=== PATIENT | male | born 1965 | race Caucasian/White ===

== ENCOUNTER 2017-10-31 19:20 | Emergency (ER) | payer OTHER ==
[~2017-10-31] VITALS: Ht 175.3 cm; Wt 84.1 kg
[2017-10-31 19:24] VITALS: TEMP 97.4
[2017-10-31 20:40] LABS: COLLECTION METHOD CLEAN CATCH
[2017-10-31 20:46] LABS: PH 8 (5-8); SQUAMOUS EPITHELIAL 0-2 /hpf; URINE APPEARANCE Clear; URINE BACTERIA None Seen /hpf; URINE BILIRUBIN Negative (NEGATIVE); URINE BLOOD Negative (NEGATIVE); URINE COLOR Straw; URINE GLUCOSE Negative (NEGATIVE); URINE KETONE Negative (NEGATIVE); URINE LEUKOCYTE ESTERASE Negative (NEGATIVE); URINE PROTEIN(semi-quant) Negative (NEGATIVE); URINE UROBILINOGEN Negative (NEGATIVE); URINE WBC 0-2 /hpf
[2017-10-31] MEDS ORDERED: NAPROXEN 3375 MG/TAB PO (21:18)
[2017-10-31] MEDS ORDERED: NORCO 325 MG-51 TAB PO (21:55)
[2017-10-31 22:11] VITALS: BP 156/64; PULSE 60
[2017-11-01] MEDS ORDERED: PHENERGAN25 MG RC (23:51)
[2017-11-01] MEDS ORDERED: FLEXERIL 1010 MG/TAB PO (23:51)
== END 2017-10-31 22:12 | disposition home or self-care (01) ==
LOC: COL.ER 19:20
PROVIDERS: Emergency Medicine
DX: S30.0XXA Contusion of lower back and pelvis, initial encounter (principal); W10.9XXA Fall (on) (from) unspecified stairs and steps, initial encounter; Y92.009 Unspecified place in unspecified non-institutional (private) residence as the place of occurrence of the external cause
CPT/HCPCS: J1170; J1885; J2405

== ENCOUNTER 2017-11-01 21:45 | Emergency (ER) | payer OTHER ==
[~2017-11-01] VITALS: Ht 175.3 cm; Wt 84.1 kg
[~2017-11-01 21:45] MED LIST: NAPROXEN 3375 MG/TAB PO; NORCO 325 MG-51 TAB PO
[2017-11-01 21:51] VITALS: BP 131/74; TEMP 98.1
[2017-11-01] MEDS ORDERED: FLEXERIL 1010 MG/TAB PO (23:51)
[2017-11-01] MEDS ORDERED: PHENERGAN25 MG RC (23:51)
[2017-11-01 23:59] VITALS: PULSE 75
== END 2017-11-02 00:01 | disposition home or self-care (01) ==
LOC: COL.ER 21:45
DX: R11.2 Nausea with vomiting, unspecified (principal); M62.838 Other muscle spasm

== ENCOUNTER 2018-07-20 20:43 | Emergency (ER) | payer OTHER ==
[~2018-07-20] VITALS: Ht 175.3 cm; Wt 90.9 kg
[~2018-07-20 20:43] MED LIST changes: +FLEXERIL 1010 MG/TAB PO; +PHENERGAN25 MG RC
[2018-07-20 20:48] VITALS: TEMP 98.6
[2018-07-20] MEDS ORDERED: ZENZEDI2.5 MG PO (21:41)
[2018-07-20] MEDS ORDERED: ZOCOR5 MG PO (21:42)
[2018-07-20] MEDS ORDERED: EFFE25TA PO (21:42)
[2018-07-20] MEDS ORDERED: LOPRESSOR 225 MG/TAB PO (21:42)
[2018-07-20] MEDS ORDERED: LITHIUM CA150 MG/CAP (21:43)
[2018-07-20 21:46] LABS: COLLECTION METHOD CLEAN CATCH
[2018-07-20 21:58] LABS: MUCOUS Present /lpf; PH 7 (5-8); SQUAMOUS EPITHELIAL 0-2 /hpf; URINE APPEARANCE Clear; URINE BACTERIA None Seen /hpf; URINE BILIRUBIN Negative (NEGATIVE); URINE BLOOD Negative (NEGATIVE); URINE COLOR Yellow; URINE GLUCOSE Negative (NEGATIVE); URINE KETONE Negative (NEGATIVE); URINE LEUKOCYTE ESTERASE Negative (NEGATIVE); URINE NITRATE Negative (NEGATIVE); URINE PROTEIN(semi-quant) Negative (NEGATIVE); URINE RBC 0-2 /hpf; URINE UROBILINOGEN Negative (NEGATIVE)
[2018-07-20] MEDS ORDERED: MOBIC15 MG PO (22:41)
[2018-07-20] MEDS ORDERED: FLEXERIL 1010 MG/TAB PO (22:41)
[2018-07-20 23:06] VITALS: BP 145/80; PULSE 64
== END 2018-07-20 23:08 | disposition home or self-care (01) ==
LOC: COL.ER 20:43
PROVIDERS: Emergency Medicine
DX: M54.5 Low back pain (principal); I10 Essential (primary) hypertension; E78.5 Hyperlipidemia, unspecified; Z98.890 Other specified postprocedural states; Z87.891 Personal history of nicotine dependence
CPT/HCPCS: J1885; J2360

== ENCOUNTER → 2018-10-05 | Outpatient (CLI) | payer OTHER ==
[~2018-10-05] MED LIST changes: +EFFE25TA PO; +LITHIUM CA150 MG/CAP; +LOPRESSOR 225 MG/TAB PO; +MOBIC15 MG PO; +ZENZEDI2.5 MG PO; +ZOCOR5 MG PO
== END ==
LOC: COL.RAD 13:00
DX: M47.812 Spondylosis without myelopathy or radiculopathy, cervical region (principal); M99.71 Connective tissue and disc stenosis of intervertebral foramina of cervical region

== ENCOUNTER 2018-10-21 20:21 | Emergency (ER) | payer OTHER ==
[~2018-10-21] VITALS: Ht 175.3 cm; Wt 90.9 kg
[2018-10-21 20:28] VITALS: BP 147/72; TEMP 98.7
[2018-10-21] MEDS ORDERED: BACTRIM DS 8001 TAB PO (21:09)
[2018-10-21] MEDS ORDERED: CEPHALEXIN500 M1 PO (21:09)
[2018-10-21 21:36] VITALS: PULSE 78
== END 2018-10-21 21:36 | disposition home or self-care (01) ==
LOC: COL.ER 20:21
DX: L02.212 Cutaneous abscess of back [any part, except buttock and flank] (principal); F31.9 Bipolar disorder, unspecified; F98.8 Other specified behavioral and emotional disorders with onset usually occurring in childhood and adolescence

== ENCOUNTER 2019-01-16 21:56 | Emergency (ER) | payer OTHER ==
[~2019-01-16] VITALS: Ht 175.3 cm; Wt 95.5 kg
[~2019-01-16 21:56] MED LIST changes: +BACTRIM DS 8001 TAB PO; +CEPHALEXIN500 M1 PO
[2019-01-16 22:02] VITALS: TEMP 97.4
[2019-01-16] MEDS ORDERED: FLOMAX 0.40.4 MG/CAP PO (22:38)
[2019-01-16] MEDS ORDERED: FLEXERIL 1010 MG/TAB PO (23:22)
[2019-01-16] MEDS ORDERED: NORCO 325 MG-51 TAB PO (23:22)
[2019-01-17] MEDS ORDERED: FLEXERIL 1010 MG/TAB PO (00:09)
[2019-01-17 00:15] VITALS: BP 123/61; PULSE 73
== END 2019-01-17 00:26 | disposition home or self-care (01) ==
LOC: COL.ER 21:56
DX: M25.512 Pain in left shoulder (principal); E78.5 Hyperlipidemia, unspecified; N40.0 Benign prostatic hyperplasia without lower urinary tract symptoms; F31.9 Bipolar disorder, unspecified; F98.8 Other specified behavioral and emotional disorders with onset usually occurring in childhood and adolescence
CPT/HCPCS: J1885

== ENCOUNTER 2019-05-27 18:16 | Emergency (ER) | payer OTHER ==
[~2019-05-27] VITALS: Ht 175.3 cm; Wt 98.2 kg
[~2019-05-27 18:16] MED LIST changes: +FLOMAX 0.40.4 MG/CAP PO
[2019-05-27 18:20] VITALS: BP 145/65; PULSE 77; TEMP 98
== END 2019-05-27 18:45 | disposition home or self-care (01) ==
LOC: COL.ER 18:16
DX: M79.89 Other specified soft tissue disorders (principal)

== ENCOUNTER 2019-08-02 15:28 | Emergency (ER) | payer OTHER ==
[~2019-08-02] VITALS: Ht 175.3 cm; Wt 100.0 kg
[2019-08-02 15:58] VITALS: BP 136/85; TEMP 98.7
[2019-08-02 17:30] VITALS: PULSE 75
== END 2019-08-02 17:30 | disposition home or self-care (01) ==
LOC: COL.ER 15:28
DX: S86.911A Strain of unspecified muscle(s) and tendon(s) at lower leg level, right leg, initial encounter (principal); I10 Essential (primary) hypertension; X50.1XXA Overexertion from prolonged static or awkward postures, initial encounter

== ENCOUNTER 2019-10-25 08:29 | Observation (INO) | payer OTHER ==
[~2019-10-25] VITALS: Ht 175.3 cm; Wt 92.7 kg
[~2019-10-25 08:29] MED LIST changes: +ASPIRIN E.C. 8181 MG PO; -LITHIUM CA150 MG/CAP; +LITHIUM CA150 MG/CAP PO; +SEROQUEL 2525 MG/TAB PO; +ZOCOR 20MG20 MG PO
[2019-10-25 09:00] LABS: BASO % 0.2 % (0.0-2.0); EOS # 0.2 (0.0-0.7); EOS % 4.3 % (0-4.0); GRAN # 2.7 (1.4-6.5); GRAN % 54.2 % (42.2-75.2); HEMATOCRIT 46.3 % (42.0-52.0); LYMPH # 1.6 (1.2-3.4); LYMPH % 31.4 % (20.0-51.0); MEAN CELL VOLUME 92 fl (80.0-100.0); MEAN CORPUSCULAR HEMOGLOBIN 30 pg (27.0-31.0); MEAN CORPUSCULAR HGB CONC 32 g/dl (33.0-37.0); MEAN PLATELET VOLUME 11.2 fl (7.4-10.4); MONO # 0.5 (0.1-0.6); MONO % 9.7 % (1.7-9.3); PLATELET COUNT 178 K/mm3 (130-400); RED BLOOD COUNT 5.05 M/mm3 (4.20-5.60); REDCELL DISTRIBUTION WIDTH-CV 12.7 % (11.5-14.5)
[2019-10-25 09:11] LABS: PROTHROMBIN TIME 11.8 SECONDS (9.7-12.8)
[2019-10-25 09:14] LABS: PARTIAL THROMBOPLASTIN TIME 36.5 SECONDS (26.0-37.0)
[2019-10-25 09:17] LABS: ALANINE AMINOTRANSFERASE 30 U/L (21-72); ALBUMIN 4.1 gm/dL (3.5-5.0); ALKALINE PHOSPHATASE 51 U/L (50-136); ANION GAP 5 mmol/L (7-16); AST,SGOT 18 U/L (15-37); BILIRUBIN,TOTAL 0.4 mg/dL (0.0-1.0); BLOOD UREA NITROGEN 13 mg/dL (9-20); CALCIUM 8.7 mg/dL (8.4-10.2); CARBON DIOXIDE 31 mmol/L (22-30); CHLORIDE 105 mmol/L (98-107); CREATININE, serum 0.91 (0.66-1.25); GLUCOSE 85 mg/dL (74-106); MAGNESIUM 2.1 mg/dL (1.6-2.3); PHOSPHOROUS 2.1 mg/dL (2.5-4.5); POTASSIUM 4.2 mmol/L (3.4-5.0); SODIUM 140 mmol/L (137-145); TOTAL PROTEIN 6.6 gm/dL (6.4-8.2)
[2019-10-25 09:32] LABS: ALCOHOL(ethanol),MEDICAL < 10 mg/dL; TROPONIN-I < 0.012 ng/mL (0.000-0.035)
[2019-10-25 11:53] VITALS: BP 130/56; PULSE 96; TEMP 98.6
--- NOTE | 2019-10-25 13:24 | NUR ---
Pt 5 page, allergies and pharmacy completed. Pt laying in bed, A&O. RAC IV flushes w/o complication. Pt on room air, denies SOB. Pt on tele. Pt denies heart palpitations. States he has some "lightheadedness" if he gets up too fast. Pt denies pain, N/V/D. Pt independent in room. LS cta, heart RRR, pulses strong bilaterally. Pt states his "slurred speech is getting better". Pt isn't wearing dentures at this time, difficult to tell what baseline is, speech doesn't sound slurred. Hospitalist aware of pt arrival to floor. Pt down for MRI at this time. No other concerns expressed at this time.
[2019-10-25 16:22] VITALS: BP 136/52; PULSE 68; TEMP 98.2
[2019-10-25 19:56] LABS: COLLECTION METHOD CLEAN CATCH
[2019-10-25 20:00] LABS: MUCOUS Present /lpf; PH 6 (5-8); SQUAMOUS EPITHELIAL 0-2 /hpf; URINE APPEARANCE Clear; URINE BACTERIA Rare /hpf; URINE BILIRUBIN Negative (NEGATIVE); URINE BLOOD Negative (NEGATIVE); URINE COLOR Yellow; URINE GLUCOSE Negative (NEGATIVE); URINE KETONE Negative (NEGATIVE); URINE LEUKOCYTE ESTERASE Negative (NEGATIVE); URINE NITRATE Negative (NEGATIVE); URINE PROTEIN(semi-quant) Negative (NEGATIVE); URINE RBC 0-2 /hpf; URINE UROBILINOGEN Negative (NEGATIVE)
--- NOTE | 2019-10-25 20:15 | NUR ---
Resting in bed. Assessment complete. Lungs clear. Heart sounds normal. Bowels active x4. Pulses strong throughout. No edema noted. INT right AC flushed without complications. Denies pain. Denies needs. Hand trouble locater strong and equal No extremity drift. Steady gait. Smile and facial movement symmetrical. Will continue to monitor.
[2019-10-25 20:28] VITALS: BP 137/60; PULSE 71; TEMP 98.5
--- NOTE | 2019-10-25 23:06 | NUR ---
Patient ambulated to vending machines and back with staff. Gait belt. Steady gait at this time.
--- NOTE | 2019-10-25 23:38 | NUR ---
Resting in bed. Assessment complete. Lungs clear. Heart sounds normal. Bowels active x4. Pulses strong throughout. No edema noted. INT right AC flushed without complications. Denies pain. Denies needs. Hand night shift strong and equal. No extremity drift. Steady gait. Smile and facial movement symmetrical. Will continue to monitor.
[2019-10-26 00:29] VITALS: BP 131/58; PULSE 63; TEMP 98
--- NOTE | 2019-10-26 04:30 | NUR ---
Resting in bed. Denies needs. Call light in reach.
[2019-10-26 05:03] VITALS: BP 152/61; PULSE 57; TEMP 97.6
--- NOTE | 2019-10-26 05:58 | NUR ---
Patient had uneventful night. Rest in bed this AM. Call light in reach.
--- NOTE | 2019-10-26 06:47 | NUR ---
Report given to FLORIAN José
[2019-10-26 07:20] VITALS: BP 139/61; PULSE 61; TEMP 98.1
[2019-10-26 07:31] LABS: CALCIUM 8.9 mg/dL (8.4-10.2); CREATININE, serum 0.71 (0.66-1.25); POTASSIUM 4.1 mmol/L (3.4-5.0)
[2019-10-26 08:07] LABS: BASO % 0.5 % (0.0-2.0); EOS # 0.4 (0.0-0.7); EOS % 6.3 % (0-4.0); GRAN # 2.9 (1.4-6.5); GRAN % 48.4 % (42.2-75.2); HEMATOCRIT 45.8 % (42.0-52.0); LYMPH % 34.3 % (20.0-51.0); MEAN CELL VOLUME 91 fl (80.0-100.0); MEAN CORPUSCULAR HEMOGLOBIN 30 pg (27.0-31.0); MEAN CORPUSCULAR HGB CONC 33 g/dl (33.0-37.0); MEAN PLATELET VOLUME 11.9 fl (7.4-10.4); MONO # 0.6 (0.1-0.6); MONO % 10.3 % (1.7-9.3); PLATELET COUNT 170 K/mm3 (130-400); RED BLOOD COUNT 5.04 M/mm3 (4.20-5.60); REDCELL DISTRIBUTION WIDTH-CV 12.6 % (11.5-14.5)
--- NOTE | 2019-10-26 09:30 | NUR ---
Pt assessment completed and charted. Pt A&O, independent in room. Morning medications administered per JAN. Pt has steady gait, clear speech, neuro checks are ok, no score on stroke scale. Pt ambulating in room and in halls.Pt on tele and room air. Pt denies dizziness, SOB, N/V/D, chest pain, vision changes or changes in speech. Pt states he "feels better today". RAC INT IV flushes w/o complications. No other concerns expressed at this time.
[2019-10-26] MEDS ORDERED: ASPIRIN 81M81 MG/TA2 PO (10:40)
--- NOTE | 2019-10-26 10:46 | NUR ---
Still Pump Operator attended rounds with the team. Patient to discharge today. SW met with patient to discuss discharge plan. Patient lives outside of [place] with his sister in law, Alyssa. Patient sees Dr. Chaves at the [facility]. Patient has medications delivered from the [facility] and reports no difficulties in obtaining his medications. Patient does not use any DME and is independent with ADLS. Patient states his daughter, Grace ([phone]) is DPOA-HC. SW advised patient that copy was not located in EMR. Patient states he will have Grace send in a copy. Patient plans to return home upon discharge. No additional concerns at this time.
[2019-10-26 12:00] VITALS: BP 144/77; PULSE 85; TEMP 98
--- NOTE | 2019-10-26 14:45 | NUR ---
Pt discharge instructions discussed and reviewed w/ patient who verbalized understanding. All questions answered. No other concerns expressed at this time. Pt ambulated out independently with this nurse.
== END 2019-10-26 14:45 | disposition home or self-care (01) ==
LOC: COL.ER 08:29 → MEDICAL 10:41
PROVIDERS: Emergency Medicine; Physician Assistant; ADMIT Student in an Organized Health Care Education/Training Program
DX: I69.328 Other speech and language deficits following cerebral infarction (principal); I25.10 Atherosclerotic heart disease of native coronary artery without angina pectoris; I10 Essential (primary) hypertension; E78.5 Hyperlipidemia, unspecified; F32.9 Major depressive disorder, single episode, unspecified; F90.9 Attention-deficit hyperactivity disorder, unspecified type; G47.00 Insomnia, unspecified; N40.0 Benign prostatic hyperplasia without lower urinary tract symptoms; I08.1 Rheumatic disorders of both mitral and tricuspid valves; Z88.8 Allergy status to other drugs, medicaments and biological substances; Z91.018 Allergy to other foods
CPT/HCPCS: A9585; G0378; J1650; J7030; Q9967

== ENCOUNTER 2019-12-16 20:52 | Emergency (ER) | payer OTHER ==
[~2019-12-16] VITALS: Ht 175.3 cm; Wt 97.3 kg
[~2019-12-16 20:52] MED LIST changes: +ASPIRIN 81M81 MG/TA2 PO
[2019-12-16 20:58] VITALS: TEMP 98.1
[2019-12-16 21:58] LABS: COLLECTION METHOD CLEAN CATCH
[2019-12-16 22:04] LABS: MUCOUS Present /lpf; PH 5 (5-8); SQUAMOUS EPITHELIAL 0-2 /hpf; URINE APPEARANCE Clear; URINE BACTERIA None Seen /hpf; URINE BILIRUBIN Negative (NEGATIVE); URINE BLOOD Negative (NEGATIVE); URINE COLOR Yellow; URINE GLUCOSE Negative (NEGATIVE); URINE KETONE Negative (NEGATIVE); URINE LEUKOCYTE ESTERASE Negative (NEGATIVE); URINE NITRATE Negative (NEGATIVE); URINE PROTEIN(semi-quant) Negative (NEGATIVE); URINE RBC 0-2 /hpf; URINE UROBILINOGEN Negative (NEGATIVE)
[2019-12-16] MEDS ORDERED: NORCO 325 MG-51 TAB PO (22:44)
[2019-12-16] MEDS ORDERED: FLEXERIL 1010 MG/TAB PO (22:44)
[2019-12-16 22:52] VITALS: BP 123/57; PULSE 81
== END 2019-12-16 22:57 | disposition home or self-care (01) ==
LOC: COL.ER 20:52
PROVIDERS: Emergency Medicine
DX: M54.16 Radiculopathy, lumbar region (principal); Z79.82 Long term (current) use of aspirin
CPT/HCPCS: J1885; J2360

== ENCOUNTER 2019-12-21 21:58 | Emergency (ER) | payer OTHER ==
[~2019-12-21] VITALS: Ht 175.3 cm; Wt 97.3 kg
[2019-12-21 22:03] VITALS: TEMP 98.9
[2019-12-21 22:28] LABS: BASO % 0.4 % (0.0-2.0); EOS # 0.2 (0.0-0.7); EOS % 4.1 % (0-4.0); GRAN # 2.3 (1.4-6.5); GRAN % 42.9 % (42.2-75.2); HEMATOCRIT 42.8 % (42.0-52.0); HEMOGLOBIN 14.2 g/dl (13.5-18.0); LYMPH # 2.3 (1.2-3.4); LYMPH % 42.6 % (20.0-51.0); MEAN CELL VOLUME 91 fl (80.0-100.0); MEAN CORPUSCULAR HEMOGLOBIN 30 pg (27.0-31.0); MEAN CORPUSCULAR HGB CONC 33 g/dl (33.0-37.0); MEAN PLATELET VOLUME 11.3 fl (7.4-10.4); MONO # 0.5 (0.1-0.6); MONO % 9.8 % (1.7-9.3); PLATELET COUNT 174 K/mm3 (130-400); RED BLOOD COUNT 4.73 M/mm3 (4.20-5.60)
[2019-12-21 22:34] LABS: ALANINE AMINOTRANSFERASE 38 U/L (21-72); ALBUMIN 4.4 gm/dL (3.5-5.0); ALKALINE PHOSPHATASE 58 U/L (50-136); ANION GAP 9 mmol/L (7-16); AST,SGOT 31 U/L (15-37); BILIRUBIN,TOTAL 0.4 mg/dL (0.0-1.0); BLOOD UREA NITROGEN 17 mg/dL (9-20); CALCIUM 8.7 mg/dL (8.4-10.2); CARBON DIOXIDE 26 mmol/L (22-30); CHLORIDE 105 mmol/L (98-107); CREATININE, serum 0.99 (0.66-1.25); GLUCOSE 123 mg/dL (74-106); SODIUM 140 mmol/L (137-145); TOTAL PROTEIN 6.8 gm/dL (6.4-8.2)
[2019-12-21 22:49] LABS: TROPONIN-I < 0.012 ng/mL (0.000-0.035)
[2019-12-21] MEDS ORDERED: ANTIVERT 25MG25 MG PO (23:03)
[2019-12-21] MEDS ORDERED: PHENERGAN 25 TA25 MG PO (23:03)
[2019-12-22 02:53] VITALS: BP 119/74; PULSE 60
[2019-12-23] MEDS ORDERED: FLEXERIL 1010 MG/TAB PO (22:52)
[2019-12-24] MEDS ORDERED: CEFTIN500 MG PO ×2 (18:07→21:19)
== END 2019-12-22 02:53 | disposition home or self-care (01) ==
LOC: COL.ER 21:58
PROVIDERS: Emergency Medicine
DX: R42 Dizziness and giddiness (principal); I10 Essential (primary) hypertension; E78.5 Hyperlipidemia, unspecified; F31.9 Bipolar disorder, unspecified; F98.8 Other specified behavioral and emotional disorders with onset usually occurring in childhood and adolescence; Z86.73 Personal history of transient ischemic attack (TIA), and cerebral infarction without residual deficits; Z79.82 Long term (current) use of aspirin
CPT/HCPCS: J2550; J7030

== ENCOUNTER 2019-12-23 20:54 | Emergency (ER) | payer OTHER ==
[~2019-12-23] VITALS: Ht 175.3 cm; Wt 97.7 kg
[~2019-12-23 20:54] MED LIST changes: +ANTIVERT 25MG25 MG PO; +PHENERGAN 25 TA25 MG PO
[2019-12-23 21:55] LABS: BASO % 0.4 % (0.0-2.0); EOS # 0.2 (0.0-0.7); EOS % 4.4 % (0-4.0); GRAN # 2.2 (1.4-6.5); HEMATOCRIT 41.7 % (42.0-52.0); HEMOGLOBIN 13.9 g/dl (13.5-18.0); LYMPH # 2.2 (1.2-3.4); LYMPH % 42.4 % (20.0-51.0); MEAN CELL VOLUME 90 fl (80.0-100.0); MEAN CORPUSCULAR HEMOGLOBIN 30 pg (27.0-31.0); MEAN CORPUSCULAR HGB CONC 33 g/dl (33.0-37.0); MEAN PLATELET VOLUME 11.1 fl (7.4-10.4); MONO # 0.5 (0.1-0.6); MONO % 9.6 % (1.7-9.3); PLATELET COUNT 153 K/mm3 (130-400); RED BLOOD COUNT 4.64 M/mm3 (4.20-5.60); REDCELL DISTRIBUTION WIDTH-CV 13.1 % (11.5-14.5)
[2019-12-23 22:05] LABS: ALANINE AMINOTRANSFERASE 33 U/L (21-72); ALBUMIN 4.1 gm/dL (3.5-5.0); ALKALINE PHOSPHATASE 56 U/L (50-136); ANION GAP 8 mmol/L (7-16); AST,SGOT 25 U/L (15-37); BILIRUBIN,TOTAL 0.4 mg/dL (0.0-1.0); BLOOD UREA NITROGEN 17 mg/dL (9-20); CALCIUM 8.9 mg/dL (8.4-10.2); CARBON DIOXIDE 25 mmol/L (22-30); CHLORIDE 106 mmol/L (98-107); CREATININE, serum 0.68 (0.66-1.25); GLUCOSE 131 mg/dL (74-106); POTASSIUM 3.8 mmol/L (3.4-5.0); SODIUM 139 mmol/L (137-145); TOTAL PROTEIN 6.5 gm/dL (6.4-8.2)
[2019-12-23 22:06] LABS: C-REACTIVE PROTEIN < 0.5 mg/dL (0.0-0.9)
[2019-12-23 22:33] LABS: COLLECTION METHOD CLEAN CATCH
[2019-12-23 22:41] LABS: MUCOUS Present /lpf; PH 5 (5-8); SQUAMOUS EPITHELIAL 0-2 /hpf; URINE APPEARANCE Clear; URINE BACTERIA None Seen /hpf; URINE BILIRUBIN Negative (NEGATIVE); URINE BLOOD Negative (NEGATIVE); URINE COLOR Yellow; URINE GLUCOSE Negative (NEGATIVE); URINE KETONE Negative (NEGATIVE); URINE LEUKOCYTE ESTERASE Trace (NEGATIVE); URINE NITRATE Negative (NEGATIVE); URINE PROTEIN(semi-quant) Negative (NEGATIVE); URINE UROBILINOGEN Negative (NEGATIVE)
[2019-12-23] MEDS ORDERED: FLEXERIL 1010 MG/TAB PO (22:52)
[2019-12-23 23:20] VITALS: BP 132/72; PULSE 80; TEMP 98.1
[2019-12-24] MEDS ORDERED: CEFTIN500 MG PO ×2 (18:07→21:19)
== END 2019-12-23 23:20 | disposition home or self-care (01) ==
LOC: COL.ER 20:54
PROVIDERS: Emergency Medicine
DX: M54.5 Low back pain (principal); Z79.82 Long term (current) use of aspirin
CPT/HCPCS: J1885

== ENCOUNTER 2019-12-25 23:43 | Emergency (ER) | payer OTHER ==
[~2019-12-25] VITALS: Ht 175.3 cm; Wt 100.0 kg
[~2019-12-25 23:43] MED LIST changes: +CEFTIN500 MG PO
[2019-12-25 23:44] VITALS: BP 126/69; TEMP 97.8
[2019-12-26 01:06] VITALS: PULSE 81
== END 2019-12-26 01:10 | disposition home or self-care (01) ==
LOC: COL.ER 23:43
DX: N39.0 Urinary tract infection, site not specified (principal); I10 Essential (primary) hypertension; E78.5 Hyperlipidemia, unspecified; Z79.82 Long term (current) use of aspirin

== ENCOUNTER 2019-12-28 19:19 | Emergency (ER) | payer OTHER ==
[~2019-12-28] VITALS: Ht 175.3 cm; Wt 97.7 kg
[2019-12-28 20:04] LABS: BASO % 0.3 % (0.0-2.0); EOS # 0.1 (0.0-0.7); EOS % 2.1 % (0-4.0); GRAN # 3.9 (1.4-6.5); GRAN % 59.1 % (42.2-75.2); HEMATOCRIT 43.9 % (42.0-52.0); HEMOGLOBIN 14.4 g/dl (13.5-18.0); LYMPH # 1.9 (1.2-3.4); LYMPH % 28.8 % (20.0-51.0); MEAN CELL VOLUME 90 fl (80.0-100.0); MEAN CORPUSCULAR HEMOGLOBIN 30 pg (27.0-31.0); MEAN CORPUSCULAR HGB CONC 33 g/dl (33.0-37.0); MEAN PLATELET VOLUME 10.7 fl (7.4-10.4); MONO # 0.6 (0.1-0.6); MONO % 9.5 % (1.7-9.3); PLATELET COUNT 156 K/mm3 (130-400); RED BLOOD COUNT 4.86 M/mm3 (4.20-5.60); REDCELL DISTRIBUTION WIDTH-CV 13.1 % (11.5-14.5)
[2019-12-28 20:21] LABS: ALANINE AMINOTRANSFERASE 44 U/L (21-72); ALBUMIN 4.3 gm/dL (3.5-5.0); ALKALINE PHOSPHATASE 53 U/L (50-136); ANION GAP 9 mmol/L (7-16); AST,SGOT 48 U/L (15-37); BILIRUBIN,TOTAL 0.4 mg/dL (0.0-1.0); BLOOD UREA NITROGEN 16 mg/dL (9-20); CALCIUM 9.2 mg/dL (8.4-10.2); CARBON DIOXIDE 28 mmol/L (22-30); CHLORIDE 104 mmol/L (98-107); CREATININE, serum 0.77 (0.66-1.25); GLUCOSE 84 mg/dL (74-106); POTASSIUM 4.1 mmol/L (3.4-5.0); SODIUM 141 mmol/L (137-145)
[2019-12-28 20:22] LABS: C-REACTIVE PROTEIN < 0.5 mg/dL (0.0-0.9)
[2019-12-28 20:57] LABS: COLLECTION METHOD CLEAN CATCH
[2019-12-28 21:06] LABS: MUCOUS Present /lpf; PH 6 (5-8); URINE APPEARANCE Clear; URINE BACTERIA None Seen /hpf; URINE BILIRUBIN Negative (NEGATIVE); URINE BLOOD Negative (NEGATIVE); URINE COLOR Yellow; URINE GLUCOSE Negative (NEGATIVE); URINE KETONE Negative (NEGATIVE); URINE LEUKOCYTE ESTERASE Negative (NEGATIVE); URINE NITRATE Negative (NEGATIVE); URINE PROTEIN(semi-quant) Negative (NEGATIVE); URINE UROBILINOGEN Negative (NEGATIVE)
[2019-12-28 21:48] VITALS: BP 142/62; PULSE 70; TEMP 98.4
== END 2019-12-28 22:01 | disposition home or self-care (01) ==
LOC: COL.ER 19:19
PROVIDERS: Emergency Medicine
DX: R53.81 Other malaise (principal); R53.83 Other fatigue; I10 Essential (primary) hypertension; F31.9 Bipolar disorder, unspecified; Z79.82 Long term (current) use of aspirin
CPT/HCPCS: J7030

== ENCOUNTER 2019-12-31 00:09 | Emergency (ER) | payer OTHER ==
[~2019-12-31] VITALS: Ht 175.3 cm; Wt 97.7 kg
[2019-12-31 00:10] VITALS: TEMP 97.5
[2019-12-31 02:28] LABS: BASO % 0.4 % (0.0-2.0); EOS # 0.2 (0.0-0.7); EOS % 4.3 % (0-4.0); GRAN % 41.7 % (42.2-75.2); HEMATOCRIT 42.9 % (42.0-52.0); LYMPH % 41.3 % (20.0-51.0); MEAN CELL VOLUME 91 fl (80.0-100.0); MEAN CORPUSCULAR HEMOGLOBIN 30 pg (27.0-31.0); MEAN CORPUSCULAR HGB CONC 33 g/dl (33.0-37.0); MEAN PLATELET VOLUME 11.4 fl (7.4-10.4); MONO # 0.6 (0.1-0.6); MONO % 12.1 % (1.7-9.3); PLATELET COUNT 150 K/mm3 (130-400); RED BLOOD COUNT 4.73 M/mm3 (4.20-5.60); REDCELL DISTRIBUTION WIDTH-CV 13.1 % (11.5-14.5)
[2019-12-31 02:38] LABS: ALANINE AMINOTRANSFERASE 54 U/L (21-72); ALBUMIN 4.2 gm/dL (3.5-5.0); ALKALINE PHOSPHATASE 45 U/L (50-136); ANION GAP 9 mmol/L (7-16); AST,SGOT 54 U/L (15-37); BILIRUBIN,TOTAL 0.5 mg/dL (0.0-1.0); BLOOD UREA NITROGEN 21 mg/dL (9-20); CALCIUM 8.9 mg/dL (8.4-10.2); CARBON DIOXIDE 26 mmol/L (22-30); CHLORIDE 103 mmol/L (98-107); GLUCOSE 105 mg/dL (74-106); SODIUM 138 mmol/L (137-145); TOTAL PROTEIN 6.7 gm/dL (6.4-8.2)
[2019-12-31 02:49] LABS: TROPONIN-I < 0.012 ng/mL (0.000-0.035)
[2019-12-31 05:15] VITALS: BP 121/57; PULSE 61
== END 2019-12-31 05:15 | disposition home or self-care (01) ==
LOC: COL.ER 00:09
PROVIDERS: Emergency Medicine
DX: H93.11 Tinnitus, right ear (principal); R42 Dizziness and giddiness; I10 Essential (primary) hypertension; E78.5 Hyperlipidemia, unspecified; J44.9 Chronic obstructive pulmonary disease, unspecified; F31.9 Bipolar disorder, unspecified; F90.9 Attention-deficit hyperactivity disorder, unspecified type; I25.10 Atherosclerotic heart disease of native coronary artery without angina pectoris; Z86.73 Personal history of transient ischemic attack (TIA), and cerebral infarction without residual deficits; Z79.82 Long term (current) use of aspirin; Z95.9 Presence of cardiac and vascular implant and graft, unspecified
CPT/HCPCS: J2060; J7030

== ENCOUNTER 2020-03-13 04:02 | Emergency (ER) | payer OTHER ==
[~2020-03-13] VITALS: Ht 175.3 cm; Wt 100.0 kg
[2020-03-13 04:04] VITALS: TEMP 98
[2020-03-13 05:00] VITALS: BP 150/85; PULSE 68
== END 2020-03-13 05:00 | disposition home or self-care (01) ==
LOC: COL.ER 04:02
DX: S61.012A Laceration without foreign body of left thumb without damage to nail, initial encounter (principal); W26.8XXA Contact with other sharp object(s), not elsewhere classified, initial encounter; Y92.009 Unspecified place in unspecified non-institutional (private) residence as the place of occurrence of the external cause

== ENCOUNTER 2020-03-21 09:23 | Emergency (ER) | payer OTHER ==
[2020-03-21 09:47] VITALS: BP 135/80; PULSE 86
== END 2020-03-21 09:47 | disposition home or self-care (01) ==
LOC: COL.ER 09:23
DX: Z48.02 Encounter for removal of sutures (principal)

== ENCOUNTER 2020-05-21 10:00 | Emergency (ER) | payer OTHER ==
[~2020-05-21] VITALS: Ht 175.3 cm; Wt 100.0 kg
[2020-05-21 10:03] VITALS: BP 152/80
[2020-05-21] MEDS ORDERED: LITHIUM 30300 MG/CAP PO (10:59)
[2020-05-21] MEDS ORDERED: DESYREL 100MG100 MG PO (11:00)
[2020-05-21 11:47] LABS: BASO % 0.2 % (0.0-2.0); EOS # 0.1 (0.0-0.7); EOS % 3.4 % (0-4.0); GRAN # 2.3 (1.4-6.5); GRAN % 55.2 % (42.2-75.2); HEMOGLOBIN 13.8 g/dl (13.5-18.0); LYMPH # 1.3 (1.2-3.4); MEAN CELL VOLUME 91 fl (80.0-100.0); MEAN CORPUSCULAR HEMOGLOBIN 30 pg (27.0-31.0); MEAN CORPUSCULAR HGB CONC 33 g/dl (33.0-37.0); MEAN PLATELET VOLUME 11.3 fl (7.4-10.4); MONO # 0.4 (0.1-0.6); PLATELET COUNT 143 K/mm3 (130-400); RED BLOOD COUNT 4.62 M/mm3 (4.20-5.60); REDCELL DISTRIBUTION WIDTH-CV 12.6 % (11.5-14.5)
[2020-05-21 12:05] LABS: ALANINE AMINOTRANSFERASE 39 U/L (4-49); ALBUMIN 3.7 gm/dL (3.5-5.0); ALKALINE PHOSPHATASE 54 U/L (50-136); ANION GAP 5 mmol/L (7-16); AST,SGOT 40 U/L (15-37); BILIRUBIN,TOTAL 0.7 mg/dL (0.0-1.0); BLOOD UREA NITROGEN 12 mg/dL (9-20); CALCIUM 8.5 mg/dL (8.4-10.2); CARBON DIOXIDE 27 mmol/L (22-30); CHLORIDE 105 mmol/L (98-107); CREATININE, serum 0.76 (0.66-1.25); GLUCOSE 96 mg/dL (74-106); LIPASE 72 U/L (23-300); POTASSIUM 4.1 mmol/L (3.4-5.0); SODIUM 137 mmol/L (137-145); TOTAL PROTEIN 6.3 gm/dL (6.4-8.2)
[2020-05-21 12:16] LABS: TROPONIN-I < 0.012 ng/mL (0.000-0.035)
[2020-05-21] MEDS ORDERED: PREDNISONE20 MG PO (12:57)
[2020-05-21] MEDS ORDERED: EPIPEN 2-PAK1 MG/ML IM (12:58)
[2020-05-21 15:06] VITALS: PULSE 69; TEMP 98.2
== END 2020-05-21 14:58 | disposition home or self-care (01) ==
LOC: COL.ER 10:00
PROVIDERS: Emergency Medicine
DX: T63.441A Toxic effect of venom of bees, accidental (unintentional), initial encounter (principal); F90.9 Attention-deficit hyperactivity disorder, unspecified type; F31.9 Bipolar disorder, unspecified
CPT/HCPCS: J1200; J2930; J7030

== ENCOUNTER 2020-06-07 10:40 | Emergency (ER) | payer SELFPAY ==
[~2020-06-07] VITALS: Ht 175.3 cm; Wt 100.0 kg
[~2020-06-07 10:40] MED LIST changes: +DESYREL 100MG100 MG PO; +EPIPEN 2-PAK1 MG/ML IM; +LITHIUM 30300 MG/CAP PO; +PREDNISONE20 MG PO
[2020-06-07 10:43] VITALS: TEMP 98.7
[2020-06-07 12:13] VITALS: BP 164/86; PULSE 74
== END 2020-06-07 12:21 | disposition home or self-care (01) ==
LOC: COL.ER 10:40
DX: S00.83XA Contusion of other part of head, initial encounter (principal); S00.211A Abrasion of right eyelid and periocular area, initial encounter; S00.81XA Abrasion of other part of head, initial encounter; S50.311A Abrasion of right elbow, initial encounter; V59.9XXA Occupant (driver) (passenger) of pick-up truck or van injured in unspecified traffic accident, initial encounter; Y92.59 Other trade areas as the place of occurrence of the external cause; Y99.0 Civilian activity done for income or pay

== ENCOUNTER 2020-06-29 13:12 | Outpatient (RCR) | payer OTHER ==
[2020-08-31] MEDS ORDERED: COUMADIN 5MG5 MG/TAB PO (23:21)
[2020-08-31] MEDS ORDERED: ROXICODONE 55 MG/TAB PO (23:21)
[2020-08-31] MEDS ORDERED: EFFEXOR 75M75 MG/TAB PO (23:23)
[2020-08-31] MEDS ORDERED: ZOCOR 80MG80 MG PO (23:23)
[2020-08-31] MEDS ORDERED: PROZAC 20MG20 MG PO (23:24)
[2020-08-31] MEDS ORDERED: MOBIC15 MG PO (23:25)
[2020-08-31] MEDS ORDERED: MAG-OX 400400 MG/TAB PO (23:26)
[2020-08-31] MEDS ORDERED: ASPIRIN E.C. 8181 MG PO (23:26)
[2020-08-31] MEDS ORDERED: ASPI325T6 PO (23:26)
[2020-09-01] MEDS ORDERED: DOXYCYCLINE 10100 MG PO (02:45)
[2020-09-01] MEDS ORDERED: OMNICEF 300MG300 MG PO (02:45)
[2020-09-10] MEDS ORDERED: NEXIUM 20MG20 MG PO (00:55)
[2020-09-12] MEDS ORDERED: CARAFATE 1GM1 G PO (22:41)
== END 2020-09-14 | disposition home or self-care (01) ==
LOC: WSOH
DX: S60.212D Contusion of left wrist, subsequent encounter (principal); S00.83XD Contusion of other part of head, subsequent encounter; S50.311D Abrasion of right elbow, subsequent encounter; Z98.890 Other specified postprocedural states; Z87.81 Personal history of (healed) traumatic fracture; Z87.891 Personal history of nicotine dependence; Y99.0 Civilian activity done for income or pay

== ENCOUNTER 2020-08-27 13:15 | Emergency (ER) | payer OTHER ==
[~2020-08-27] VITALS: Ht 175.3 cm; Wt 94.5 kg
[2020-08-27 13:20] VITALS: TEMP 97.7
[2020-08-27 13:46] LABS: BASO % 0.3 % (0.0-2.0); EOS # 0.4 (0.0-0.7); EOS % 3.9 % (0-4.0); GRAN # 6.9 (1.4-6.5); GRAN % 67.6 % (42.2-75.2); HEMATOCRIT 44.2 % (42.0-52.0); HEMOGLOBIN 14.4 g/dl (13.5-18.0); MEAN CELL VOLUME 91 fl (80.0-100.0); MEAN CORPUSCULAR HEMOGLOBIN 30 pg (27.0-31.0); MEAN CORPUSCULAR HGB CONC 33 g/dl (33.0-37.0); MEAN PLATELET VOLUME 10.2 fl (7.4-10.4); MONO # 0.7 (0.1-0.6); MONO % 6.9 % (1.7-9.3); PLATELET COUNT 338 K/mm3 (130-400); RED BLOOD COUNT 4.88 M/mm3 (4.20-5.60); REDCELL DISTRIBUTION WIDTH-CV 13.2 % (11.5-14.5)
[2020-08-27 14:03] LABS: ALBUMIN 4.4 gm/dL (3.5-5.0); BILIRUBIN,TOTAL 0.8 mg/dL (0.0-1.0); CALCIUM 9.2 mg/dL (8.4-10.2); CREATININE, serum 0.84 (0.66-1.25); POTASSIUM 4.9 mmol/L (3.4-5.0); TOTAL PROTEIN 7.7 gm/dL (6.4-8.2)
[2020-08-27 14:22] LABS: INR 1.3 (0.8-3.0); PROTHROMBIN TIME 14.9 SECONDS (9.7-12.8)
[2020-08-27 14:27] LABS: TROPONIN-I 0.101 ng/mL (0.000-0.035)
[2020-08-27 16:15] VITALS: BP 110/81; PULSE 86
== END 2020-08-27 16:17 | disposition home or self-care (01) ==
LOC: COL.ER 13:15
PROVIDERS: Emergency Medicine
DX: R07.89 Other chest pain (principal); R06.02 Shortness of breath; Z79.01 Long term (current) use of anticoagulants
CPT/HCPCS: J3010

== ENCOUNTER 2020-08-31 21:11 | Emergency (ER) | payer OTHER ==
[~2020-08-31] VITALS: Ht 175.3 cm; Wt 94.5 kg
[2020-08-31 21:14] VITALS: TEMP 98.4
[2020-08-31 22:03] LABS: BASO % 0.4 % (0.0-2.0); EOS # 0.6 (0.0-0.7); EOS % 5.6 % (0-4.0); GRAN # 6.4 (1.4-6.5); GRAN % 63.2 % (42.2-75.2); HEMATOCRIT 40.4 % (42.0-52.0); HEMOGLOBIN 13.2 g/dl (13.5-18.0); LYMPH # 2.3 (1.2-3.4); LYMPH % 22.8 % (20.0-51.0); MEAN CELL VOLUME 90 fl (80.0-100.0); MEAN CORPUSCULAR HEMOGLOBIN 29 pg (27.0-31.0); MEAN CORPUSCULAR HGB CONC 33 g/dl (33.0-37.0); MEAN PLATELET VOLUME 10.4 fl (7.4-10.4); MONO # 0.8 (0.1-0.6); MONO % 7.5 % (1.7-9.3); PLATELET COUNT 288 K/mm3 (130-400); RED BLOOD COUNT 4.49 M/mm3 (4.20-5.60); REDCELL DISTRIBUTION WIDTH-CV 13.1 % (11.5-14.5)
[2020-08-31 22:08] LABS: PROTHROMBIN TIME 22.4 SECONDS (9.7-12.8)
[2020-08-31 22:15] LABS: ALBUMIN 3.9 gm/dL (3.5-5.0); BILIRUBIN,TOTAL 0.4 mg/dL (0.0-1.0); CALCIUM 8.8 mg/dL (8.4-10.2); CREATININE, serum 0.97 (0.66-1.25); POTASSIUM 4.4 mmol/L (3.4-5.0); TOTAL PROTEIN 6.8 gm/dL (6.4-8.2)
[2020-08-31 22:29] LABS: TROPONIN-I 0.044 ng/mL (0.000-0.035)
[2020-08-31] MEDS ORDERED: ROXICODONE 55 MG/TAB PO (23:21)
[2020-08-31] MEDS ORDERED: COUMADIN 5MG5 MG/TAB PO (23:21)
[2020-08-31] MEDS ORDERED: ZOCOR 80MG80 MG PO (23:23)
[2020-08-31] MEDS ORDERED: EFFEXOR 75M75 MG/TAB PO (23:23)
[2020-08-31] MEDS ORDERED: PROZAC 20MG20 MG PO (23:24)
[2020-08-31] MEDS ORDERED: MOBIC15 MG PO (23:25)
[2020-08-31] MEDS ORDERED: MAG-OX 400400 MG/TAB PO (23:26)
[2020-08-31] MEDS ORDERED: ASPI325T6 PO (23:26)
[2020-08-31] MEDS ORDERED: ASPIRIN E.C. 8181 MG PO (23:26)
[2020-09-01] MEDS ORDERED: DOXYCYCLINE 10100 MG PO (02:45)
[2020-09-01] MEDS ORDERED: OMNICEF 300MG300 MG PO (02:45)
[2020-09-01 03:00] VITALS: BP 103/81; PULSE 76
== END 2020-09-01 03:25 | disposition home or self-care (01) ==
LOC: COL.ER 21:11
PROVIDERS: Emergency Medicine
DX: J18.1 Lobar pneumonia, unspecified organism (principal); E78.5 Hyperlipidemia, unspecified; Z88.8 Allergy status to other drugs, medicaments and biological substances; Z79.01 Long term (current) use of anticoagulants; Z79.82 Long term (current) use of aspirin
CPT/HCPCS: A9284; J0696; J1885; J2270; J2405; Q9967

== ENCOUNTER 2020-09-06 20:04 | Emergency (ER) | payer OTHER ==
[~2020-09-06] VITALS: Ht 175.3 cm; Wt 90.5 kg
[~2020-09-06 20:04] MED LIST changes: +ASPI325T6 PO; +COUMADIN 5MG5 MG/TAB PO; +DOXYCYCLINE 10100 MG PO; +EFFEXOR 75M75 MG/TAB PO; +MAG-OX 400400 MG/TAB PO; +OMNICEF 300MG300 MG PO; +PROZAC 20MG20 MG PO; +ROXICODONE 55 MG/TAB PO; +ZOCOR 80MG80 MG PO
[2020-09-06 20:40] LABS: BASO % 0.6 % (0.0-2.0); EOS # 0.5 (0.0-0.7); EOS % 6.4 % (0-4.0); GRAN # 4.1 (1.4-6.5); GRAN % 57.9 % (42.2-75.2); HEMATOCRIT 41.7 % (42.0-52.0); HEMOGLOBIN 13.4 g/dl (13.5-18.0); LYMPH # 1.9 (1.2-3.4); LYMPH % 26.6 % (20.0-51.0); MEAN CELL VOLUME 90 fl (80.0-100.0); MEAN CORPUSCULAR HEMOGLOBIN 29 pg (27.0-31.0); MEAN CORPUSCULAR HGB CONC 32 g/dl (33.0-37.0); MEAN PLATELET VOLUME 10.6 fl (7.4-10.4); MONO # 0.6 (0.1-0.6); MONO % 8.2 % (1.7-9.3); PLATELET COUNT 249 K/mm3 (130-400); RED BLOOD COUNT 4.62 M/mm3 (4.20-5.60)
[2020-09-06 20:42] LABS: INR 1.4 (0.8-3.0); PROTHROMBIN TIME 15.3 SECONDS (9.7-12.8)
[2020-09-06 20:52] LABS: ALBUMIN 4.3 gm/dL (3.5-5.0); BILIRUBIN,TOTAL 0.5 mg/dL (0.0-1.0); C-REACTIVE PROTEIN 0.8 mg/dL (0.0-0.9); CALCIUM 9.3 mg/dL (8.4-10.2); CREATININE, serum 0.83 (0.66-1.25); POTASSIUM 4.4 mmol/L (3.4-5.0); TOTAL PROTEIN 7.3 gm/dL (6.4-8.2)
[2020-09-06 21:01] LABS: TROPONIN-I 0.024 ng/mL (0.000-0.035)
[2020-09-06 22:25] VITALS: BP 117/95; PULSE 83; TEMP 98.1
== END 2020-09-06 22:39 | disposition home or self-care (01) ==
LOC: COL.ER 20:04
PROVIDERS: Emergency Medicine
DX: R07.9 Chest pain, unspecified (principal); R06.00 Dyspnea, unspecified; R06.02 Shortness of breath; R79.1 Abnormal coagulation profile; E78.5 Hyperlipidemia, unspecified; I25.10 Atherosclerotic heart disease of native coronary artery without angina pectoris; Z95.2 Presence of prosthetic heart valve; Z98.61 Coronary angioplasty status; Z88.8 Allergy status to other drugs, medicaments and biological substances; Z79.82 Long term (current) use of aspirin; Z79.01 Long term (current) use of anticoagulants
CPT/HCPCS: J2405; J3010; Q9967

== ENCOUNTER 2020-09-09 22:02 | Emergency (ER) | payer OTHER ==
[~2020-09-09] VITALS: Ht 175.3 cm; Wt 90.5 kg
[2020-09-09 22:11] VITALS: TEMP 97.6
[2020-09-09 22:55] LABS: BASO % 0.4 % (0.0-2.0); EOS # 0.3 (0.0-0.7); EOS % 4.6 % (0-4.0); GRAN # 4.3 (1.4-6.5); GRAN % 62.1 % (42.2-75.2); HEMATOCRIT 42.7 % (42.0-52.0); HEMOGLOBIN 13.7 g/dl (13.5-18.0); LYMPH # 1.7 (1.2-3.4); LYMPH % 24.6 % (20.0-51.0); MEAN CELL VOLUME 92 fl (80.0-100.0); MEAN CORPUSCULAR HEMOGLOBIN 29 pg (27.0-31.0); MEAN CORPUSCULAR HGB CONC 32 g/dl (33.0-37.0); MEAN PLATELET VOLUME 10.8 fl (7.4-10.4); MONO # 0.6 (0.1-0.6); MONO % 8.2 % (1.7-9.3); PLATELET COUNT 220 K/mm3 (130-400); RED BLOOD COUNT 4.66 M/mm3 (4.20-5.60); REDCELL DISTRIBUTION WIDTH-CV 13.1 % (11.5-14.5)
[2020-09-09 23:05] LABS: ALANINE AMINOTRANSFERASE 35 U/L (4-49); ALBUMIN 4.4 gm/dL (3.5-5.0); ALKALINE PHOSPHATASE 133 U/L (50-136); ANION GAP 9 mmol/L (7-16); AST,SGOT 26 U/L (15-37); BILIRUBIN,TOTAL 0.5 mg/dL (0.0-1.0); BLOOD UREA NITROGEN 17 mg/dL (9-20); CALCIUM 9.5 mg/dL (8.4-10.2); CARBON DIOXIDE 30 mmol/L (22-30); CHLORIDE 99 mmol/L (98-107); CREATININE, serum 0.92 (0.66-1.25); GLUCOSE 112 mg/dL (74-106); LIPASE 64 U/L (23-300); POTASSIUM 4.7 mmol/L (3.4-5.0); SODIUM 137 mmol/L (137-145); TOTAL PROTEIN 7.3 gm/dL (6.4-8.2)
[2020-09-09 23:20] LABS: TROPONIN-I < 0.012 ng/mL (0.000-0.035)
[2020-09-10] MEDS ORDERED: NEXIUM 20MG20 MG PO (00:55)
[2020-09-10 02:31] VITALS: BP 123/92; PULSE 85
== END 2020-09-10 01:12 | disposition home or self-care (01) ==
LOC: COL.ER 22:02
PROVIDERS: Emergency Medicine
DX: R10.13 Epigastric pain (principal); F41.9 Anxiety disorder, unspecified; F31.9 Bipolar disorder, unspecified; E78.5 Hyperlipidemia, unspecified; Z95.2 Presence of prosthetic heart valve; Z88.8 Allergy status to other drugs, medicaments and biological substances; Z79.82 Long term (current) use of aspirin; Z79.01 Long term (current) use of anticoagulants; Z79.1 Long term (current) use of non-steroidal anti-inflammatories (NSAID)

== ENCOUNTER 2020-09-12 22:12 | Emergency (ER) | payer OTHER ==
[~2020-09-12] VITALS: Ht 175.3 cm; Wt 89.1 kg
[~2020-09-12 22:12] MED LIST changes: +NEXIUM 20MG20 MG PO
[2020-09-12 22:19] VITALS: TEMP 98.2
[2020-09-12] MEDS ORDERED: CARAFATE 1GM1 G PO (22:41)
[2020-09-12 22:47] LABS: BASO % 0.4 % (0.0-2.0); EOS # 0.4 (0.0-0.7); EOS % 6.4 % (0-4.0); GRAN # 3.9 (1.4-6.5); HEMATOCRIT 45.3 % (42.0-52.0); HEMOGLOBIN 14.6 g/dl (13.5-18.0); MEAN CELL VOLUME 91 fl (80.0-100.0); MEAN CORPUSCULAR HEMOGLOBIN 29 pg (27.0-31.0); MEAN CORPUSCULAR HGB CONC 32 g/dl (33.0-37.0); MEAN PLATELET VOLUME 11.6 fl (7.4-10.4); MONO # 0.5 (0.1-0.6); MONO % 7.1 % (1.7-9.3); PLATELET COUNT 239 K/mm3 (130-400); RED BLOOD COUNT 4.98 M/mm3 (4.20-5.60); REDCELL DISTRIBUTION WIDTH-CV 13.2 % (11.5-14.5)
[2020-09-12 22:59] LABS: ALANINE AMINOTRANSFERASE 39 U/L (4-49); ALBUMIN 4.3 gm/dL (3.5-5.0); ALKALINE PHOSPHATASE 124 U/L (50-136); ANION GAP 9 mmol/L (7-16); AST,SGOT 34 U/L (15-37); BILIRUBIN,TOTAL 0.6 mg/dL (0.0-1.0); BLOOD UREA NITROGEN 15 mg/dL (9-20); CALCIUM 9.3 mg/dL (8.4-10.2); CARBON DIOXIDE 30 mmol/L (22-30); CHLORIDE 98 mmol/L (98-107); CREATININE, serum 0.89 (0.66-1.25); GLUCOSE 112 mg/dL (74-106); LIPASE 117 U/L (23-300); POTASSIUM 4.3 mmol/L (3.4-5.0); SODIUM 137 mmol/L (137-145); TOTAL PROTEIN 7.3 gm/dL (6.4-8.2)
[2020-09-12 23:04] LABS: C-REACTIVE PROTEIN < 0.5 mg/dL (0.0-0.9)
[2020-09-12 23:11] LABS: TROPONIN-I < 0.012 ng/mL (0.000-0.035)
[2020-09-13 00:49] VITALS: BP 113/89; PULSE 86
== END 2020-09-13 01:03 | disposition home or self-care (01) ==
LOC: COL.ER 22:12
PROVIDERS: Emergency Medicine
DX: R10.13 Epigastric pain (principal); I10 Essential (primary) hypertension; E78.00 Pure hypercholesterolemia, unspecified; I25.10 Atherosclerotic heart disease of native coronary artery without angina pectoris; F31.9 Bipolar disorder, unspecified; Z79.01 Long term (current) use of anticoagulants; Z79.82 Long term (current) use of aspirin
CPT/HCPCS: C9113; J2060; J2405; J3010; J7030

== ENCOUNTER 2020-09-27 22:10 | Emergency (ER) | payer OTHER ==
[~2020-09-27] VITALS: Ht 175.3 cm; Wt 90.9 kg
[~2020-09-27 22:10] MED LIST changes: +CARAFATE 1GM1 G PO
[2020-09-27 22:15] VITALS: TEMP 97.7
[2020-09-27 23:06] LABS: BASO % 0.2 % (0.0-2.0); EOS # 0.1 (0.0-0.7); GRAN # 2.1 (1.4-6.5); HEMATOCRIT 38.3 % (42.0-52.0); HEMOGLOBIN 12.5 g/dl (13.5-18.0); LYMPH % 42.4 % (20.0-51.0); MEAN CELL VOLUME 90 fl (80.0-100.0); MEAN CORPUSCULAR HEMOGLOBIN 29 pg (27.0-31.0); MEAN CORPUSCULAR HGB CONC 33 g/dl (33.0-37.0); MEAN PLATELET VOLUME 10.5 fl (7.4-10.4); MONO # 0.5 (0.1-0.6); MONO % 10.2 % (1.7-9.3); PLATELET COUNT 180 K/mm3 (130-400); RED BLOOD COUNT 4.25 M/mm3 (4.20-5.60); REDCELL DISTRIBUTION WIDTH-CV 13.3 % (11.5-14.5)
[2020-09-27 23:15] LABS: INR 1.8 (0.8-3.0); PROTHROMBIN TIME 20.3 SECONDS (9.7-12.8)
[2020-09-27 23:31] LABS: ALBUMIN 3.9 gm/dL (3.5-5.0); BILIRUBIN,TOTAL 0.3 mg/dL (0.0-1.0); CALCIUM 8.4 mg/dL (8.4-10.2); CREATININE, serum 0.79 (0.66-1.25); POTASSIUM 4.1 mmol/L (3.4-5.0); TOTAL PROTEIN 6.4 gm/dL (6.4-8.2)
[2020-09-28] MEDS ORDERED: ANTIVERT 25MG25 MG PO (00:54)
[2020-09-28] MEDS ORDERED: PHENERGAN 25 TA25 MG PO (00:54)
[2020-09-28 01:04] LABS: COLLECTION METHOD CLEAN CATCH
[2020-09-28 01:10] LABS: MUCOUS Present /lpf; PH 6 (5-8); SQUAMOUS EPITHELIAL 0-2 /hpf; URINE APPEARANCE Clear; URINE BACTERIA None Seen /hpf; URINE BILIRUBIN Negative (NEGATIVE); URINE BLOOD Negative (NEGATIVE); URINE COLOR Straw; URINE GLUCOSE Negative (NEGATIVE); URINE KETONE Negative (NEGATIVE); URINE LEUKOCYTE ESTERASE Negative (NEGATIVE); URINE NITRATE Negative (NEGATIVE); URINE PROTEIN(semi-quant) Negative (NEGATIVE); URINE RBC 0-2 /hpf; URINE UROBILINOGEN Negative (NEGATIVE)
[2020-09-28 01:39] VITALS: BP 146/70; PULSE 80
== END 2020-09-28 01:39 | disposition home or self-care (01) ==
LOC: COL.ER 22:10
PROVIDERS: Emergency Medicine
DX: H81.10 Benign paroxysmal vertigo, unspecified ear (principal); F41.9 Anxiety disorder, unspecified; F32.9 Major depressive disorder, single episode, unspecified; E78.5 Hyperlipidemia, unspecified; Z86.73 Personal history of transient ischemic attack (TIA), and cerebral infarction without residual deficits; Z95.2 Presence of prosthetic heart valve; Z88.8 Allergy status to other drugs, medicaments and biological substances; Z79.82 Long term (current) use of aspirin; Z79.1 Long term (current) use of non-steroidal anti-inflammatories (NSAID); Z79.01 Long term (current) use of anticoagulants

== ENCOUNTER → 2020-09-29 | Outpatient (CLI) | payer OTHER ==
[2020-09-29 15:07] LABS: INR 1.3 (0.8-3.0); PROTHROMBIN TIME 14.8 SECONDS (9.7-12.8)
== END ==
LOC: COL.LAB 14:26
DX: Z95.2 Presence of prosthetic heart valve (principal)

== ENCOUNTER 2020-10-16 22:27 | Emergency (ER) | payer OTHER ==
[~2020-10-16] VITALS: Ht 175.3 cm; Wt 90.9 kg
[2020-10-16 22:28] VITALS: TEMP 98.3
[2020-10-17] VITALS: BP 130/95; PULSE 90
== END 2020-10-17 00:03 | disposition home or self-care (01) ==
LOC: COL.ER 22:27
DX: G89.18 Other acute postprocedural pain (principal); F31.9 Bipolar disorder, unspecified; Z88.1 Allergy status to other antibiotic agents; Z79.01 Long term (current) use of anticoagulants; Z79.82 Long term (current) use of aspirin
CPT/HCPCS: J1170; J2405

== ENCOUNTER → 2020-10-16 | Outpatient (CLI) | payer OTHER ==
[2020-10-16 12:26] LABS: INR 1.8 (0.8-3.0); PROTHROMBIN TIME 20.1 SECONDS (9.7-12.8)
== END ==
LOC: COL.LAB 11:22
DX: Z95.2 Presence of prosthetic heart valve (principal)

== ENCOUNTER → 2020-10-23 | Outpatient (CLI) | payer OTHER ==
[2020-10-23 14:47] LABS: INR 3.1 (0.8-3.0); PROTHROMBIN TIME 34.6 SECONDS (9.7-12.8)
== END ==
LOC: COL.LAB 13:49
PROVIDERS: Thoracic Surgery (Cardiothoracic Vascular Surgery)
DX: Z95.2 Presence of prosthetic heart valve (principal)

== ENCOUNTER 2020-10-27 15:14 | Outpatient (RCR) | payer OTHER | END 2020-12-05 | disposition home or self-care (01) | LOC: COL.CR | DX: Z48.812 Encounter for surgical aftercare following surgery on the circulatory system (principal); Z95.2 Presence of prosthetic heart valve; I35.1 Nonrheumatic aortic (valve) insufficiency ==

== ENCOUNTER → 2020-11-06 | Outpatient (CLI) | payer OTHER ==
[2020-11-06 12:35] LABS: INR 2.6 (0.8-3.0); PROTHROMBIN TIME 29.9 SECONDS (9.7-12.8)
== END ==
LOC: COL.LAB 12:05
DX: Z95.2 Presence of prosthetic heart valve (principal)

== ENCOUNTER 2020-11-13 19:15 | Emergency (ER) | payer OTHER ==
[~2020-11-13] VITALS: Ht 175.3 cm; Wt 90.9 kg
[2020-11-13 19:18] VITALS: TEMP 97.9
[2020-11-13 19:43] LABS: BASO % 0.3 % (0.0-2.0); EOS # 0.2 (0.0-0.7); EOS % 2.7 % (0-4.0); GRAN # 3.9 (1.4-6.5); GRAN % 58.9 % (42.2-75.2); HEMATOCRIT 44.6 % (42.0-52.0); HEMOGLOBIN 14.3 g/dl (13.5-18.0); LYMPH # 1.8 (1.2-3.4); MEAN CELL VOLUME 88 fl (80.0-100.0); MEAN CORPUSCULAR HEMOGLOBIN 28 pg (27.0-31.0); MEAN CORPUSCULAR HGB CONC 32 g/dl (33.0-37.0); MEAN PLATELET VOLUME 10.9 fl (7.4-10.4); MONO # 0.7 (0.1-0.6); MONO % 10.8 % (1.7-9.3); PLATELET COUNT 162 K/mm3 (130-400); RED BLOOD COUNT 5.05 M/mm3 (4.20-5.60); REDCELL DISTRIBUTION WIDTH-CV 13.2 % (11.5-14.5)
[2020-11-13 19:48] LABS: ALANINE AMINOTRANSFERASE 32 U/L (4-49); ALBUMIN 4.1 gm/dL (3.5-5.0); ALKALINE PHOSPHATASE 60 U/L (50-136); ANION GAP 6 mmol/L (7-16); AST,SGOT 30 U/L (15-37); BILIRUBIN,TOTAL 0.6 mg/dL (0.0-1.0); BLOOD UREA NITROGEN 14 mg/dL (9-20); CARBON DIOXIDE 30 mmol/L (22-30); CHLORIDE 101 mmol/L (98-107); CREATININE, serum 0.75 (0.66-1.25); GLUCOSE 98 mg/dL (74-106); POTASSIUM 3.8 mmol/L (3.4-5.0); SODIUM 137 mmol/L (137-145); TOTAL PROTEIN 6.8 gm/dL (6.4-8.2)
[2020-11-13 20:01] LABS: TROPONIN-I < 0.012 ng/mL (0.000-0.035)
[2020-11-13 21:37] VITALS: BP 114/89; PULSE 88
== END 2020-11-13 21:37 | disposition home or self-care (01) ==
LOC: COL.ER 19:15
PROVIDERS: Emergency Medicine
DX: G89.29 Other chronic pain (principal); R07.89 Other chest pain; I10 Essential (primary) hypertension; I25.10 Atherosclerotic heart disease of native coronary artery without angina pectoris; Z79.01 Long term (current) use of anticoagulants; Z79.82 Long term (current) use of aspirin
CPT/HCPCS: J1885

== ENCOUNTER 2021-01-15 21:05 | Emergency (ER) | payer OTHER ==
[~2021-01-15] VITALS: Ht 175.3 cm; Wt 100.0 kg
[2021-01-15 21:07] VITALS: TEMP 98
[2021-01-15 21:53] LABS: BASO % 0.3 % (0.0-2.0); EOS # 0.1 (0.0-0.7); EOS % 1.2 % (0-4.0); GRAN # 4.6 (1.4-6.5); GRAN % 59.9 % (42.2-75.2); HEMATOCRIT 46.9 % (42.0-52.0); HEMOGLOBIN 15.7 g/dl (13.5-18.0); LYMPH # 2.3 (1.2-3.4); LYMPH % 29.3 % (20.0-51.0); MEAN CELL VOLUME 86 fl (80.0-100.0); MEAN CORPUSCULAR HEMOGLOBIN 29 pg (27.0-31.0); MEAN CORPUSCULAR HGB CONC 34 g/dl (33.0-37.0); MEAN PLATELET VOLUME 11.3 fl (7.4-10.4); MONO # 0.7 (0.1-0.6); MONO % 9.2 % (1.7-9.3); PLATELET COUNT 163 K/mm3 (130-400); RED BLOOD COUNT 5.46 M/mm3 (4.20-5.60); REDCELL DISTRIBUTION WIDTH-CV 13.2 % (11.5-14.5)
[2021-01-15 21:59] LABS: INR 1.1 (0.8-3.0); PROTHROMBIN TIME 11.8 SECONDS (9.7-12.8)
[2021-01-15 22:02] LABS: PARTIAL THROMBOPLASTIN TIME 34.7 SECONDS (26.0-37.0)
[2021-01-15 22:03] LABS: ALANINE AMINOTRANSFERASE 34 U/L (4-49); ALBUMIN 4.4 gm/dL (3.5-5.0); ALKALINE PHOSPHATASE 57 U/L (50-136); ANION GAP 6 mmol/L (7-16); AST,SGOT 33 U/L (15-37); BILIRUBIN,TOTAL 0.6 mg/dL (0.0-1.0); BLOOD UREA NITROGEN 15 mg/dL (9-20); CALCIUM 9.4 mg/dL (8.4-10.2); CARBON DIOXIDE 32 mmol/L (22-30); CHLORIDE 102 mmol/L (98-107); GLUCOSE 102 mg/dL (74-106); SODIUM 140 mmol/L (137-145)
[2021-01-15 22:23] LABS: TROPONIN-I < 0.012 ng/mL (0.000-0.035)
[2021-01-15 22:52] VITALS: BP 134/99; PULSE 85
[2021-08-05] MEDS ORDERED: BONINE25 MG PO ×2 (23:18)
== END 2021-01-15 22:56 | disposition home or self-care (01) ==
LOC: COL.ER 21:05
PROVIDERS: Emergency Medicine
DX: R06.02 Shortness of breath (principal); Z95.4 Presence of other heart-valve replacement; Z87.891 Personal history of nicotine dependence; Z88.8 Allergy status to other drugs, medicaments and biological substances; Z91.030 Bee allergy status; Z79.82 Long term (current) use of aspirin; Z79.01 Long term (current) use of anticoagulants
CPT/HCPCS: J7512

== ENCOUNTER 2021-01-19 23:08 | Emergency (ER) | payer OTHER ==
[~2021-01-19] VITALS: Ht 175.3 cm; Wt 100.0 kg
[2021-01-19 23:09] VITALS: TEMP 98.4
[2021-01-19 23:29] LABS: BASO % 0.3 % (0.0-2.0); EOS # 0.1 (0.0-0.7); EOS % 1.9 % (0-4.0); GRAN # 3.8 (1.4-6.5); GRAN % 53.4 % (42.2-75.2); HEMATOCRIT 46.8 % (42.0-52.0); HEMOGLOBIN 15.6 g/dl (13.5-18.0); LYMPH # 2.4 (1.2-3.4); LYMPH % 33.7 % (20.0-51.0); MEAN CELL VOLUME 89 fl (80.0-100.0); MEAN CORPUSCULAR HEMOGLOBIN 30 pg (27.0-31.0); MEAN CORPUSCULAR HGB CONC 33 g/dl (33.0-37.0); MEAN PLATELET VOLUME 11.3 fl (7.4-10.4); MONO # 0.7 (0.1-0.6); MONO % 10.4 % (1.7-9.3); PLATELET COUNT 167 K/mm3 (130-400); RED BLOOD COUNT 5.27 M/mm3 (4.20-5.60); REDCELL DISTRIBUTION WIDTH-CV 13.2 % (11.5-14.5)
[2021-01-19 23:39] LABS: ALANINE AMINOTRANSFERASE 34 U/L (4-49); ALBUMIN 4.3 gm/dL (3.5-5.0); ALKALINE PHOSPHATASE 69 U/L (50-136); ANION GAP 7 mmol/L (7-16); AST,SGOT 29 U/L (15-37); BILIRUBIN,TOTAL 0.4 mg/dL (0.0-1.0); BLOOD UREA NITROGEN 16 mg/dL (9-20); CARBON DIOXIDE 26 mmol/L (22-30); CHLORIDE 105 mmol/L (98-107); CREATININE, serum 0.73 (0.66-1.25); GLUCOSE 103 mg/dL (74-106); POTASSIUM 4.5 mmol/L (3.4-5.0); SODIUM 138 mmol/L (137-145); TOTAL PROTEIN 6.9 gm/dL (6.4-8.2)
[2021-01-19 23:59] LABS: TROPONIN-I < 0.012 ng/mL (0.000-0.035)
[2021-01-20 01:10] VITALS: BP 136/70; PULSE 84
[2021-08-05] MEDS ORDERED: BONINE25 MG PO ×2 (23:18)
== END 2021-01-20 01:10 | disposition home or self-care (01) ==
LOC: COL.ER 23:08
PROVIDERS: Emergency Medicine
DX: R42 Dizziness and giddiness (principal); R06.02 Shortness of breath; I25.10 Atherosclerotic heart disease of native coronary artery without angina pectoris; E66.9 Obesity, unspecified; Z88.8 Allergy status to other drugs, medicaments and biological substances; Z79.82 Long term (current) use of aspirin; Z79.01 Long term (current) use of anticoagulants; Z68.32 Body mass index [BMI] 32.0-32.9, adult
CPT/HCPCS: J1885

== ENCOUNTER 2021-02-16 14:02 | Emergency (ER) | payer OTHER ==
[~2021-02-16] VITALS: Ht 175.3 cm; Wt 101.8 kg
[2021-02-16 14:14] VITALS: TEMP 97.9
[2021-02-16 14:35] LABS: BASO % 0.5 % (0.0-2.0); EOS # 0.3 (0.0-0.7); EOS % 4.9 % (0-4.0); GRAN # 3.2 (1.4-6.5); GRAN % 54.2 % (42.2-75.2); HEMATOCRIT 46.7 % (42.0-52.0); HEMOGLOBIN 15.3 g/dl (13.5-18.0); LYMPH # 1.9 (1.2-3.4); LYMPH % 32.1 % (20.0-51.0); MEAN CELL VOLUME 90 fl (80.0-100.0); MEAN CORPUSCULAR HEMOGLOBIN 30 pg (27.0-31.0); MEAN CORPUSCULAR HGB CONC 33 g/dl (33.0-37.0); MEAN PLATELET VOLUME 11.7 fl (7.4-10.4); MONO # 0.5 (0.1-0.6); MONO % 8.1 % (1.7-9.3); PLATELET COUNT 163 K/mm3 (130-400); RED BLOOD COUNT 5.19 M/mm3 (4.20-5.60); REDCELL DISTRIBUTION WIDTH-CV 13.5 % (11.5-14.5)
[2021-02-16 14:45] LABS: ALANINE AMINOTRANSFERASE 34 U/L (4-49); ALBUMIN 4.1 gm/dL (3.5-5.0); ALKALINE PHOSPHATASE 52 U/L (50-136); ANION GAP 6 mmol/L (7-16); AST,SGOT 25 U/L (15-37); BILIRUBIN,TOTAL 0.3 mg/dL (0.0-1.0); BLOOD UREA NITROGEN 18 mg/dL (9-20); CARBON DIOXIDE 27 mmol/L (22-30); CHLORIDE 105 mmol/L (98-107); CREATININE, serum 0.86 (0.66-1.25); GLUCOSE 99 mg/dL (74-106); LIPASE 92 U/L (23-300); POTASSIUM 4.7 mmol/L (3.4-5.0); SODIUM 139 mmol/L (137-145); TOTAL PROTEIN 6.8 gm/dL (6.4-8.2)
[2021-02-16 14:47] LABS: PROTHROMBIN TIME 11.3 SECONDS (9.7-12.8)
[2021-02-16 14:49] LABS: PARTIAL THROMBOPLASTIN TIME 36.7 SECONDS (26.0-37.0)
[2021-02-16 14:59] LABS: TROPONIN-I < 0.012 ng/mL (0.000-0.035)
[2021-02-16] MEDS ORDERED: ROBAXIN 50500 MG/TAB PO (17:26)
[2021-02-16] MEDS ORDERED: TYLENOL 325MG325 MG PO (17:26)
[2021-02-16 17:50] VITALS: BP 120/75; PULSE 69
[2021-08-05] MEDS ORDERED: BONINE25 MG PO ×2 (23:18)
== END 2021-02-16 17:50 | disposition home or self-care (01) ==
LOC: COL.ER 14:02
PROVIDERS: Emergency Medicine
DX: R07.9 Chest pain, unspecified (principal); R06.02 Shortness of breath; R42 Dizziness and giddiness; I10 Essential (primary) hypertension; I25.10 Atherosclerotic heart disease of native coronary artery without angina pectoris; Z88.1 Allergy status to other antibiotic agents; Z79.01 Long term (current) use of anticoagulants; Z79.82 Long term (current) use of aspirin
CPT/HCPCS: J2270; J2405; Q9967

== ENCOUNTER 2021-04-05 22:03 | Emergency (ER) | payer OTHER ==
[~2021-04-05] VITALS: Ht 175.3 cm; Wt 106.4 kg
[~2021-04-05 22:03] MED LIST changes: +ROBAXIN 50500 MG/TAB PO; +TYLENOL 325MG325 MG PO
[2021-04-05 22:14] VITALS: TEMP 98.1
[2021-04-05 23:14] LABS: BASO % 0.3 % (0.0-2.0); EOS # 0.2 (0.0-0.7); EOS % 3.2 % (0-4.0); GRAN # 2.8 (1.4-6.5); GRAN % 47.7 % (42.2-75.2); HEMATOCRIT 42.8 % (42.0-52.0); HEMOGLOBIN 14.4 g/dl (13.5-18.0); LYMPH # 2.3 (1.2-3.4); LYMPH % 38.5 % (20.0-51.0); MEAN CELL VOLUME 90 fl (80.0-100.0); MEAN CORPUSCULAR HEMOGLOBIN 30 pg (27.0-31.0); MEAN CORPUSCULAR HGB CONC 34 g/dl (33.0-37.0); MEAN PLATELET VOLUME 11.3 fl (7.4-10.4); MONO # 0.6 (0.1-0.6); MONO % 10.1 % (1.7-9.3); PLATELET COUNT 154 K/mm3 (130-400); RED BLOOD COUNT 4.74 M/mm3 (4.20-5.60); REDCELL DISTRIBUTION WIDTH-CV 12.8 % (11.5-14.5)
[2021-04-05 23:22] LABS: INR 1.1 (0.8-3.0); PROTHROMBIN TIME 11.8 SECONDS (9.7-12.8)
[2021-04-05 23:28] LABS: ALANINE AMINOTRANSFERASE 39 U/L (4-49); ALBUMIN 4.2 gm/dL (3.5-5.0); ALKALINE PHOSPHATASE 49 U/L (50-136); ANION GAP 9 mmol/L (7-16); AST,SGOT 35 U/L (15-37); BILIRUBIN,TOTAL 0.4 mg/dL (0.0-1.0); BLOOD UREA NITROGEN 19 mg/dL (9-20); CALCIUM 8.7 mg/dL (8.4-10.2); CARBON DIOXIDE 24 mmol/L (22-30); CHLORIDE 104 mmol/L (98-107); CREATININE, serum 0.74 (0.66-1.25); GLUCOSE 86 mg/dL (74-106); POTASSIUM 3.9 mmol/L (3.4-5.0); SODIUM 137 mmol/L (137-145); TOTAL PROTEIN 6.9 gm/dL (6.4-8.2)
[2021-04-05 23:29] LABS: C-REACTIVE PROTEIN < 0.5 mg/dL (0.0-0.9)
[2021-04-05 23:37] LABS: TROPONIN-I < 0.012 ng/mL (0.000-0.035)
[2021-04-06 00:16] VITALS: BP 124/85; PULSE 64
[2021-08-05] MEDS ORDERED: BONINE25 MG PO ×2 (23:18)
== END 2021-04-06 00:21 | disposition home or self-care (01) ==
LOC: COL.ER 22:03
PROVIDERS: Emergency Medicine
DX: R06.02 Shortness of breath (principal); I10 Essential (primary) hypertension; I25.10 Atherosclerotic heart disease of native coronary artery without angina pectoris; E78.5 Hyperlipidemia, unspecified; Z79.82 Long term (current) use of aspirin; Z79.899 Other long term (current) drug therapy

== ENCOUNTER 2021-06-02 09:03 | Emergency (ER) | payer OTHER ==
[~2021-06-02] VITALS: Ht 175.3 cm; Wt 104.5 kg
[2021-06-02 09:05] VITALS: TEMP 97.5
[2021-06-02] MEDS ORDERED: NEXIUM 20MG20 MG PO (09:10)
[2021-06-02] MEDS ORDERED: TOPROL XL 50MG50 MG PO (09:13)
[2021-06-02 09:48] LABS: BASO % 0.5 % (0.0-2.0); EOS # 0.1 (0.0-0.7); EOS % 2.9 % (0-4.0); GRAN # 2.1 (1.4-6.5); GRAN % 47.5 % (42.2-75.2); HEMATOCRIT 46.6 % (42.0-52.0); HEMOGLOBIN 15.3 g/dl (13.5-18.0); LYMPH # 1.7 (1.2-3.4); LYMPH % 38.4 % (20.0-51.0); MEAN CELL VOLUME 92 fl (80.0-100.0); MEAN CORPUSCULAR HEMOGLOBIN 30 pg (27.0-31.0); MEAN CORPUSCULAR HGB CONC 33 g/dl (33.0-37.0); MEAN PLATELET VOLUME 12.1 fl (7.4-10.4); MONO # 0.5 (0.1-0.6); MONO % 10.2 % (1.7-9.3); PLATELET COUNT 155 K/mm3 (130-400); RED BLOOD COUNT 5.06 M/mm3 (4.20-5.60); REDCELL DISTRIBUTION WIDTH-CV 12.6 % (11.5-14.5)
[2021-06-02 09:54] LABS: ALANINE AMINOTRANSFERASE 43 U/L (4-49); ALBUMIN 3.8 gm/dL (3.5-5.0); ALKALINE PHOSPHATASE 47 U/L (50-136); ANION GAP 2 mmol/L (7-16); AST,SGOT 35 U/L (15-37); BILIRUBIN,TOTAL 0.3 mg/dL (0.0-1.0); BLOOD UREA NITROGEN 14 mg/dL (9-20); CALCIUM 8.9 mg/dL (8.4-10.2); CARBON DIOXIDE 30 mmol/L (22-30); CHLORIDE 107 mmol/L (98-107); CREATININE, serum 0.74 (0.66-1.25); GLUCOSE 111 mg/dL (74-106); POTASSIUM 4.5 mmol/L (3.4-5.0); SODIUM 138 mmol/L (137-145); TOTAL PROTEIN 6.5 gm/dL (6.4-8.2)
[2021-06-02 10:05] LABS: TROPONIN-I < 0.012 ng/mL (0.000-0.035)
[2021-06-02 12:54] VITALS: BP 110/73; PULSE 64
[2021-06-02] MEDS ORDERED: NORCO 325 MG-51 TAB PO (12:57)
[2021-08-05] MEDS ORDERED: BONINE25 MG PO ×2 (23:18)
== END 2021-06-02 13:30 | disposition home or self-care (01) ==
LOC: COL.ER 09:03
PROVIDERS: Personal Emergency Response Attendant
DX: R07.89 Other chest pain (principal); E78.00 Pure hypercholesterolemia, unspecified; Z87.891 Personal history of nicotine dependence; Z95.2 Presence of prosthetic heart valve; Z79.899 Other long term (current) drug therapy
CPT/HCPCS: J2270; J2405

== ENCOUNTER → 2021-08-05 | Emergency (ER) | payer OTHER ==
[~2021-08-05] VITALS: Ht 175.3 cm; Wt 110.0 kg
[~2021-08-05] MED LIST changes: +BONINE25 MG PO; +TOPROL XL 50MG50 MG PO
[2021-08-05 22:22] LABS: BASO % 0.4 % (0.0-2.0); EOS # 0.2 (0.0-0.7); EOS % 3.1 % (0-4.0); GRAN # 2.6 (1.4-6.5); GRAN % 47.3 % (42.2-75.2); HEMATOCRIT 43.2 % (42.0-52.0); HEMOGLOBIN 14.7 g/dl (13.5-18.0); LYMPH # 2.2 (1.2-3.4); LYMPH % 39.6 % (20.0-51.0); MEAN CELL VOLUME 89 fl (80.0-100.0); MEAN CORPUSCULAR HEMOGLOBIN 30 pg (27.0-31.0); MEAN CORPUSCULAR HGB CONC 34 g/dl (33.0-37.0); MEAN PLATELET VOLUME 11.7 fl (7.4-10.4); MONO # 0.5 (0.1-0.6); MONO % 9.4 % (1.7-9.3); PLATELET COUNT 142 K/mm3 (130-400); RED BLOOD COUNT 4.85 M/mm3 (4.20-5.60); REDCELL DISTRIBUTION WIDTH-CV 12.7 % (11.5-14.5)
[2021-08-05 22:35] LABS: ALBUMIN 4.1 gm/dL (3.5-5.0); BILIRUBIN,TOTAL 0.4 mg/dL (0.0-1.0); CALCIUM 8.6 mg/dL (8.4-10.2); CREATININE, serum 0.78 (0.66-1.25); POTASSIUM 4.2 mmol/L (3.4-5.0); TOTAL PROTEIN 6.5 gm/dL (6.4-8.2)
[2021-08-06 00:09] VITALS: BP 128/91; PULSE 81; TEMP 98.4
== END ==
LOC: COL.ER 21:14
PROVIDERS: Student in an Organized Health Care Education/Training Program
DX: R42 Dizziness and giddiness (principal); I10 Essential (primary) hypertension; I25.10 Atherosclerotic heart disease of native coronary artery without angina pectoris; Z79.82 Long term (current) use of aspirin; Z79.899 Other long term (current) drug therapy

== ENCOUNTER 2021-08-06 19:19 | Emergency (ER) | payer OTHER ==
[~2021-08-06] VITALS: Ht 175.3 cm; Wt 110.0 kg
[2021-08-06 19:42] VITALS: TEMP 98.2
[2021-08-06 22:10] VITALS: BP 144/80; PULSE 88
== END 2021-08-06 22:10 | disposition home or self-care (01) ==
LOC: COL.ER 19:19
DX: R42 Dizziness and giddiness (principal); I10 Essential (primary) hypertension; E78.00 Pure hypercholesterolemia, unspecified; Z79.899 Other long term (current) drug therapy

== ENCOUNTER 2021-08-20 02:43 | Observation (INO) | payer OTHER ==
[~2021-08-20] VITALS: Ht 180.3 cm; Wt 110.4 kg
[2021-08-20 03:10] LABS: BASO % 0.3 % (0.0-2.0); EOS # 0.2 (0.0-0.7); GRAN % 50.2 % (42.2-75.2); HEMATOCRIT 43.4 % (42.0-52.0); HEMOGLOBIN 14.4 g/dl (13.5-18.0); LYMPH # 2.2 (1.2-3.4); MEAN CELL VOLUME 90 fl (80.0-100.0); MEAN CORPUSCULAR HEMOGLOBIN 30 pg (27.0-31.0); MEAN CORPUSCULAR HGB CONC 33 g/dl (33.0-37.0); MEAN PLATELET VOLUME 11.8 fl (7.4-10.4); MONO # 0.6 (0.1-0.6); MONO % 9.3 % (1.7-9.3); PLATELET COUNT 140 K/mm3 (130-400); RED BLOOD COUNT 4.81 M/mm3 (4.20-5.60); REDCELL DISTRIBUTION WIDTH-CV 12.9 % (11.5-14.5)
[2021-08-20 03:17] LABS: PROTHROMBIN TIME 11.5 SECONDS (9.7-12.8)
[2021-08-20 03:20] LABS: PARTIAL THROMBOPLASTIN TIME 34.1 SECONDS (26.0-37.0)
[2021-08-20 04:08] LABS: ALANINE AMINOTRANSFERASE 52 U/L (0-55); ALBUMIN 3.7 gm/dL (3.5-5.0); ALKALINE PHOSPHATASE 47 U/L (0-750); ANION GAP 10 mmol/L (7-16); AST,SGOT 26 U/L (5-34); BILIRUBIN,TOTAL 0.2 mg/dL (0.2-1.2); BLOOD UREA NITROGEN 14 mg/dL (8-26); CALCIUM 8.6 mg/dL (8.4-10.2); CARBON DIOXIDE 21 mmol/L (22-29); CHLORIDE 107 mmol/L (98-107); CREATINE KINASE 123 U/L (30-200); CREATININE, serum 0.83 mg/dL (0.72-1.25); GLUCOSE 150 mg/dL (70-99); POTASSIUM 4.1 mmol/L (3.5-4.5); SODIUM 138 mmol/L (136-145); TOTAL PROTEIN 6.4 gm/dL (6.2-8.1)
[2021-08-20 04:16] LABS: TROPONIN-I < 0.010 ng/mL (0.00-0.033)
[2021-08-20 05:57] VITALS: BP 147/95; PULSE 62; TEMP 97.9
--- NOTE | 2021-08-20 07:30 | NUR ---
Cardiology consult called, new orders received. Informed pt that he is not have anything to eat or drink at this time. Pt does have some compalints of left upper chest pressure/tightness. He said it is better when he lays on his left side. Pt has no other needs/questions. Call light within reach
[2021-08-20 08:00] VITALS: BP 127/96; PULSE 71; TEMP 98.4
[2021-08-20 09:06] VITALS: BP 140/99; PULSE 76; TEMP 98.7
[2021-08-20 13:36] VITALS: BP 137/98; PULSE 65; TEMP 98.2
--- NOTE | 2021-08-20 14:00 | NUR ---
Pt awaiting to get to eat. Have not heard from cardiology nor seen in any notes regarding diet. Daphne Chen called and AHA diet ordered.
--- NOTE | 2021-08-20 14:20 | NUR ---
housekeeping laundry worker met with patient to discuss discharge plan. Patient lives at home by himself in [place]. Patient reports that he is fully independent with his activities of daily living and does not use any medical equipment to assist with mobility. Patient sees SNEHAL Yuan ([facility]) for primary care and receieves most of his perscriptions from the [place] but will use [facility]. Verified with the patient that his nephew Phoenix ([phone]) is his emergency contact, but he states his DPOA-HC is his daughter Grace Cai ([place], ). Patient is planning on returning home with no concerns. *Discharge plan: Home*
[2021-08-20 16:09] VITALS: BP 132/96; PULSE 74; TEMP 98.4
[2021-08-20] MEDS ORDERED: ASPIRIN 81M81 MG/TA2 PO (16:23)
--- NOTE | 2021-08-20 17:10 | NUR ---
Recently received discharge instructions for patient. As I was in another room caring for a patient, I overheard him on the phone yelling about how he has been waiting all day on paperwork so that he could leave. Several profound words said during conversation and pt was talking very loudy. Went in with discharge paperwork and explained to him that I had only received orders 30 minutes prior and that I did have other patients I was tending to. Reviewed discharge instructions with pt, removed INT from right AC. Informed pt that he would need to use his call light when his ride arrived.
== END 2021-08-20 17:45 | disposition home or self-care (01) ==
LOC: COL.ER 02:43 → SURG 04:26 → MEDICAL 15:57 → SURG 15:57
PROVIDERS: Emergency Medicine; ADMIT Internal Medicine
DX: R07.89 Other chest pain (principal); I25.10 Atherosclerotic heart disease of native coronary artery without angina pectoris; I10 Essential (primary) hypertension; E78.5 Hyperlipidemia, unspecified; K21.9 Gastro-esophageal reflux disease without esophagitis; F90.9 Attention-deficit hyperactivity disorder, unspecified type; F31.9 Bipolar disorder, unspecified; Z95.2 Presence of prosthetic heart valve; Z87.891 Personal history of nicotine dependence; Z79.899 Other long term (current) drug therapy
CPT/HCPCS: G0378; J7030

== ENCOUNTER 2021-10-06 17:07 | Emergency (ER) | payer OTHER ==
[~2021-10-06] VITALS: Ht 175.3 cm; Wt 114.5 kg
[2021-10-06 17:31] VITALS: TEMP 98.3
[2021-10-06 18:13] LABS: BASO % 0.3 % (0.0-2.0); EOS # 0.2 K/mm3 (0.0-0.7); EOS % 3.6 % (0-4.0); GRAN # 3.1 K/mm3 (1.4-6.5); GRAN % 51.2 % (42.2-75.2); HEMATOCRIT 45.4 % (42.0-52.0); HEMOGLOBIN 14.8 g/dl (13.5-18.0); LYMPH # 2.2 K/mm3 (1.2-3.4); LYMPH % 36.8 % (20.0-51.0); MEAN CELL VOLUME 93 fl (80.0-100.0); MEAN CORPUSCULAR HEMOGLOBIN 30 pg (27.0-31.0); MEAN CORPUSCULAR HGB CONC 33 g/dl (33.0-37.0); MEAN PLATELET VOLUME 11.9 fl (7.4-10.4); MONO # 0.5 K/mm3 (0.1-0.6); MONO % 7.9 % (1.7-9.3); PLATELET COUNT 150 K/mm3 (130-400); RED BLOOD COUNT 4.89 M/mm3 (4.20-5.60); REDCELL DISTRIBUTION WIDTH-CV 12.6 % (11.5-14.5)
[2021-10-06 18:33] LABS: ALBUMIN 4.3 gm/dL (3.5-5.0); BILIRUBIN,TOTAL 0.6 mg/dL (0.2-1.2); CALCIUM 9.2 mg/dL (8.4-10.2); CREATININE, serum 0.86 mg/dL (0.72-1.25); POTASSIUM 4.1 mmol/L (3.5-4.5); TOTAL PROTEIN 6.7 gm/dL (6.2-8.1)
[2021-10-06 20:37] VITALS: BP 132/88; PULSE 75
== END 2021-10-06 18:47 | disposition home or self-care (01) ==
LOC: COL.ER 17:07
PROVIDERS: Physician Assistant
DX: G57.13 Meralgia paresthetica, bilateral lower limbs (principal); I10 Essential (primary) hypertension; E78.5 Hyperlipidemia, unspecified; F41.9 Anxiety disorder, unspecified; F32.A Depression, unspecified; Z79.899 Other long term (current) drug therapy

== ENCOUNTER 2021-10-22 20:12 | Emergency (ER) | payer OTHER ==
[~2021-10-22] VITALS: Ht 175.3 cm; Wt 114.5 kg
[2021-10-22 20:13] VITALS: TEMP 98.2
[2021-10-22] MEDS ORDERED: FLEXERIL 1010 MG/TAB PO (21:58)
[2021-10-22 22:15] VITALS: BP 154/78; PULSE 76
== END 2021-10-22 22:15 | disposition home or self-care (01) ==
LOC: COL.ER 20:12
DX: M62.830 Muscle spasm of back (principal); E78.00 Pure hypercholesterolemia, unspecified; Z79.899 Other long term (current) drug therapy
CPT/HCPCS: J1885

== ENCOUNTER 2021-11-24 08:04 | Emergency (ER) | payer OTHER ==
[~2021-11-24] VITALS: Ht 175.3 cm; Wt 114.5 kg
[2021-11-24 08:10] VITALS: TEMP 97.5
[2021-11-24 08:50] LABS: BASO % 0.6 % (0.0-2.0); EOS # 0.2 K/mm3 (0.0-0.7); EOS % 4.2 % (0.0-4.0); GRAN # 2.4 K/mm3 (1.4-6.5); GRAN % 45.8 % (42.2-75.2); HEMATOCRIT 47.6 % (42.0-52.0); HEMOGLOBIN 16.1 g/dl (13.5-18.0); LYMPH % 38.4 % (20.0-51.0); MEAN CELL VOLUME 89 fl (80.0-100.0); MEAN CORPUSCULAR HEMOGLOBIN 30 pg (27-31); MEAN CORPUSCULAR HGB CONC 34 g/dl (33.0-37.0); MEAN PLATELET VOLUME 11.3 fl (7.4-10.4); MONO # 0.6 K/mm3 (0.1-0.6); MONO % 10.6 % (1.7-9.3); PLATELET COUNT 147 K/mm3 (130-400); RED BLOOD COUNT 5.37 M/mm3 (4.20-5.60); REDCELL DISTRIBUTION WIDTH-CV 12.5 % (11.5-14.5)
[2021-11-24 09:09] LABS: ALANINE AMINOTRANSFERASE 53 U/L (0-55); ALKALINE PHOSPHATASE 41 U/L (40-150); ANION GAP 8 mmol/L (7-16); AST,SGOT 31 U/L (5-34); BILIRUBIN,TOTAL 0.6 mg/dL (0.2-1.2); BLOOD UREA NITROGEN 13 mg/dL (8-26); CALCIUM 8.5 mg/dL (8.4-10.2); CARBON DIOXIDE 26 mmol/L (22-29); CHLORIDE 105 mmol/L (98-107); CREATININE, serum 0.82 mg/dL (0.72-1.25); GLUCOSE 120 mg/dL (70-99); POTASSIUM 4.6 mmol/L (3.5-4.5); SODIUM 139 mmol/L (136-145); TOTAL PROTEIN 6.5 gm/dL (6.2-8.1)
[2021-11-24 09:16] LABS: TROPONIN-I < 0.010 ng/mL (0.00-0.033)
[2021-11-24 09:26] VITALS: BP 128/96; PULSE 66
== END 2021-11-24 09:48 | disposition home or self-care (01) ==
LOC: COL.ER 08:04
PROVIDERS: Emergency Medicine
DX: R07.89 Other chest pain (principal); I10 Essential (primary) hypertension; E78.5 Hyperlipidemia, unspecified; F31.9 Bipolar disorder, unspecified; Z20.822 Contact with and (suspected) exposure to COVID-19; Z86.73 Personal history of transient ischemic attack (TIA), and cerebral infarction without residual deficits; Z79.899 Other long term (current) drug therapy

== ENCOUNTER 2022-09-04 12:18 | Observation (INO) | payer OTHER ==
[~2022-09-04] VITALS: Ht 175.3 cm; Wt 115.9 kg
[2022-09-04 13:22] LABS: BASO % 0.6 % (0.0-2.0); EOS # 0.2 K/mm3 (0.0-0.7); EOS % 3.2 % (0.0-4.0); GRAN # 2.9 K/mm3 (1.4-6.5); HEMATOCRIT 45.3 % (42.0-52.0); HEMOGLOBIN 15.5 g/dl (13.5-18.0); LYMPH # 1.9 K/mm3 (1.2-3.4); MEAN CELL VOLUME 88 fl (80.0-100.0); MEAN CORPUSCULAR HEMOGLOBIN 30 pg (27-31); MEAN CORPUSCULAR HGB CONC 34 g/dl (33.0-37.0); MEAN PLATELET VOLUME 11.5 fl (7.4-10.4); MONO # 0.3 K/mm3 (0.1-0.6); PLATELET COUNT 146 K/mm3 (130-400); RED BLOOD COUNT 5.13 M/mm3 (4.20-5.60); REDCELL DISTRIBUTION WIDTH-CV 12.5 % (11.5-14.5)
[2022-09-04 13:42] LABS: ALBUMIN 3.8 gm/dL (3.5-5.0); BILIRUBIN,TOTAL 0.2 mg/dL (0.2-1.2); CALCIUM 8.8 mg/dL (8.4-10.2); CREATININE, serum 0.92 mg/dL (0.72-1.25); POTASSIUM 4.1 mmol/L (3.5-4.5); TOTAL PROTEIN 6.3 gm/dL (6.2-8.1)
[2022-09-04 13:48] LABS: TROPONIN-I 0.016 ng/mL (0.00-0.033)
[2022-09-05] VITALS (10 sets, daily range): BP systolic 95–126; BP diastolic 61–83; PULSE 57–79; TEMP 97.6–98.1
--- NOTE | 2022-09-05 02:20 | NUR ---
pt admitted to room 308 from ED per bed, accompanied by Aviva Martínez engraving supervisor, pt able to ambulate to restroom without assistance, IV INT in RW patent/secure, admission assessment, med rec and admission intake completed, oriented to room and poc, explained that pt is NPO for testing in the am. verbalizes understanding.
--- NOTE | 2022-09-05 03:01 | NUR ---
while doing med rec, pt reports he has not been taking his prescribed meds for about a year, he was recently able to get his mental health meds restarted.
--- NOTE | 2022-09-05 06:57 | NUR ---
DR VILLALPANDO NOTIFIED OF CONSULT, WAS ALREADY AWARE OF PT
[2022-09-05 07:49] LABS: BASO % 0.5 % (0.0-2.0); EOS # 0.2 K/mm3 (0.0-0.7); EOS % 3.4 % (0.0-4.0); GRAN # 3.1 K/mm3 (1.4-6.5); GRAN % 51.5 % (42.2-75.2); HEMATOCRIT 44.3 % (42.0-52.0); HEMOGLOBIN 14.9 g/dl (13.5-18.0); LYMPH # 2.2 K/mm3 (1.2-3.4); LYMPH % 37.1 % (20.0-51.0); MEAN CELL VOLUME 89 fl (80.0-100.0); MEAN CORPUSCULAR HEMOGLOBIN 30 pg (27-31); MEAN CORPUSCULAR HGB CONC 34 g/dl (33.0-37.0); MEAN PLATELET VOLUME 11.7 fl (7.4-10.4); MONO # 0.4 K/mm3 (0.1-0.6); MONO % 7.2 % (1.7-9.3); PLATELET COUNT 154 K/mm3 (130-400); RED BLOOD COUNT 4.99 M/mm3 (4.20-5.60); REDCELL DISTRIBUTION WIDTH-CV 12.5 % (11.5-14.5)
[2022-09-05 08:03] LABS: CALCIUM 8.6 mg/dL (8.4-10.2); CREATININE, serum 0.93 mg/dL (0.72-1.25); POTASSIUM 4.2 mmol/L (3.5-4.5)
--- NOTE | 2022-09-05 09:01 | NUR ---
Initial visit; Patient thanked Cattery Operator for offering to keep him in her prayers and for stopping by. Cattery Operator wished Prabhu well.
--- NOTE | 2022-09-05 10:17 | NUR ---
SHIFT ASSESSMENT COMPLETED. MORNING MEDICATIONS HELD DUE TO BEING NPO FOR PROCEDURE. ALERT AND ORIENTED X4. LUNGS CTA. NON EDEMATOUS. DENIES ANY PAIN. INDEPENDENT WITH AMBULATION AND CARES. USES GLASSES, WHICH ARE AT BEDSIDE. DENIES ANY NEEDS AT THIS TIME. CALL LIGHT WITHIN REACH, BED IN LOWEST, LOCKED POSITION.
[2022-09-05] MEDS ORDERED: EFFEXOR 75M75 MG/TAB PO (12:11)
[2022-09-05] MEDS ORDERED: LIPITOR 40MG TA40 MG PO (12:12)
[2022-09-05] MEDS ORDERED: PROZAC 20MG20 MG PO (13:13)
--- NOTE | 2022-09-05 14:04 | NUR ---
PATIENT DISCHARGED HOME. REVIEWED DISCHARGE MEDICATIONS WITH PATIENT AND FOLLOW UP APTS. DENIES ANY FURTHER QUESTIONS OR CONCERNS. DENIES PAIN. PATIENT REQUESTS NURSING STAFF REMOVE SUTURES TO HIS RIGHT FINGER, PER PATIENT HIS SUTURES ARE SUPPOSED TO BE REMOVED TODAY. DR. ASCENCIO UPDATED, PER HUMERA DHALIWAL FOR NURSING STAFF TO REMOVE SUTURES. FINGER CLEANSED, FIVE SUTURES REMOVED INTACT, AND BAND AID APPLIED. NO BLEEDING NOTED. PT EDUCATED TO KEEP AREA CLEAN TO REDUCE RISK OF INFECTION. PATIENT ESCORTED OUT BY VIA CORTNEY STAFF.
== END 2022-09-05 13:40 | disposition home or self-care (01) ==
LOC: COL.ER 12:18 → MEDICAL 14:07
PROVIDERS: Personal Emergency Response Attendant; Physician Assistant; ADMIT Internal Medicine
DX: R07.89 Other chest pain (principal); R06.00 Dyspnea, unspecified; R06.02 Shortness of breath; I10 Essential (primary) hypertension; E78.5 Hyperlipidemia, unspecified; F31.9 Bipolar disorder, unspecified; G47.00 Insomnia, unspecified; Z20.822 Contact with and (suspected) exposure to COVID-19; Z95.2 Presence of prosthetic heart valve; Z79.82 Long term (current) use of aspirin; Z79.899 Other long term (current) drug therapy; Z86.73 Personal history of transient ischemic attack (TIA), and cerebral infarction without residual deficits
CPT/HCPCS: A9500; G0378; J2270; J2405; J2785

== ENCOUNTER 2023-02-16 19:14 | Emergency (ER) | payer OTHER ==
[~2023-02-16] VITALS: Ht 175.3 cm; Wt 79.1 kg
[~2023-02-16 19:14] MED LIST changes: +LIPITOR 40MG TA40 MG PO; +NAPROSYN500 MG PO
[2023-02-16 19:17] VITALS: TEMP 97.8
[2023-02-16 19:51] LABS: BASO % 0.2 % (0.0-2.0); EOS # 0.1 K/mm3 (0.0-0.7); EOS % 0.8 % (0.0-4.0); GRAN # 9.3 K/mm3 (1.4-6.5); GRAN % 80.7 % (42.2-75.2); LYMPH # 1.4 K/mm3 (1.2-3.4); LYMPH % 11.9 % (20.0-51.0); MEAN CELL VOLUME 91 fl (80.0-100.0); MEAN CORPUSCULAR HGB CONC 33 g/dl (33.0-37.0); MEAN PLATELET VOLUME 10.9 fl (7.4-10.4); MONO # 0.7 K/mm3 (0.1-0.6); MONO % 6.1 % (1.7-9.3); PLATELET COUNT 170 K/mm3 (130-400); RED BLOOD COUNT 5.99 M/mm3 (4.20-5.60); REDCELL DISTRIBUTION WIDTH-CV 12.9 % (11.5-14.5)
[2023-02-16 19:52] LABS: HEMATOCRIT 54.2 % (42.0-52.0); HEMOGLOBIN 18.1 g/dl (13.5-18.0); MEAN CORPUSCULAR HEMOGLOBIN 30 pg (27-31)
[2023-02-16 20:11] LABS: ALBUMIN 4.8 gm/dL (3.5-5.0); BILIRUBIN,TOTAL 0.8 mg/dL (0.2-1.2); CALCIUM 9.7 mg/dL (8.4-10.2); CREATININE, serum 1.06 mg/dL (0.72-1.25); POTASSIUM 4.1 mmol/L (3.5-4.5); TOTAL PROTEIN 8.2 gm/dL (6.2-8.1)
[2023-02-16] MEDS ORDERED: ZOFRAN ODT4 MG PO (20:43)
[2023-02-16 21:02] VITALS: BP 140/81; PULSE 80
[2023-02-17] MEDS ORDERED: DESYREL 50MG50 MG PO (18:19)
== END 2023-02-16 21:10 | disposition home or self-care (01) ==
LOC: COL.ER 19:14
PROVIDERS: Emergency Medicine
DX: R11.2 Nausea with vomiting, unspecified (principal); R19.7 Diarrhea, unspecified; D72.829 Elevated white blood cell count, unspecified; Z20.822 Contact with and (suspected) exposure to COVID-19; Z28.310 Unvaccinated for COVID-19
CPT/HCPCS: J2405; J7120

== ENCOUNTER 2023-02-17 11:49 | Observation (INO) | payer OTHER ==
[~2023-02-17] VITALS: Ht 175.3 cm; Wt 113.0 kg
[~2023-02-17 11:49] MED LIST changes: +ZOFRAN ODT4 MG PO
--- NOTE | 2023-02-17 18:10 | NUR ---
PT ARRIVED TO UNIT AT 1800. IS CURRENTLY IN THE BATHROOM WITH LOOSE STOOLS.
[2023-02-17] MEDS ORDERED: DESYREL 50MG50 MG PO (18:19)
--- NOTE | 2023-02-17 18:33 | NUR ---
PT ADMITTED TO MEDICAL UNIT. MED REC UPDATED. NG TUBE ATTATCHED TO CONTINUOUS SUCTION. PT STATES PAIN IS 2/10 AT THIS TIME. IVF INFUSING. CALL LIGHT WITHIN REACH. WILL PASS ALONG REPORT TO ONCOMING RN.
[2023-02-17 20:32] VITALS: BP 142/82; PULSE 66; TEMP 98.4
--- NOTE | 2023-02-17 21:30 | NUR ---
ADMISSION INTAKE AND ADMIT PHYSICAL EXAM DONE AT 2014
[2023-02-17 23:14] VITALS: BP 124/76; PULSE 70; TEMP 96.8
[2023-02-18 04:46] VITALS: BP 115/70; PULSE 57; TEMP 98.3
[2023-02-18 06:39] LABS: HEMATOCRIT 44.4 % (42.0-52.0); MEAN CELL VOLUME 90 fl (80.0-100.0); MEAN CORPUSCULAR HEMOGLOBIN 30 pg (27-31); MEAN CORPUSCULAR HGB CONC 34 g/dl (33.0-37.0); MEAN PLATELET VOLUME 11.9 fl (7.4-10.4); PLATELET COUNT 133 K/mm3 (130-400); RED BLOOD COUNT 4.96 M/mm3 (4.20-5.60); REDCELL DISTRIBUTION WIDTH-CV 13.2 % (11.5-14.5)
[2023-02-18 06:54] LABS: CALCIUM 8.2 mg/dL (8.4-10.2); CREATININE, serum 0.93 mg/dL (0.72-1.25); POTASSIUM 4.2 mmol/L (3.5-4.5)
--- NOTE | 2023-02-18 07:30 | NUR ---
Pt laying in bed. Shift assessment completed. NG tube remains in L nare, marked at 61 units on LIS of 70mmHG; 150cc of green fluid obtained in collection container. ABD is round and distended. Pt states ABD discomfort remains, but has improved since NG tube placement. BSx4 hypoactive. NS infusing at 125mL/hr in L AC. No request at this time. Call light within reach.
[2023-02-18 07:33] VITALS: BP 141/79; PULSE 65; TEMP 97.8
--- NOTE | 2023-02-18 08:17 | NUR ---
NG tube clamped per orders.
[2023-02-18 11:09] VITALS: BP 125/86; PULSE 62; TEMP 98.7
--- NOTE | 2023-02-18 12:00 | NUR ---
Residual check completed. Obtained 10cc of green fluid from NG tube. Flushed with 30cc of water.
--- NOTE | 2023-02-18 15:19 | NUR ---
NG tube discontinued per orders. Pt advanced to full liquid diet per orders. Pt tolerated removal well and verbalizes a feeling of relief with removal. Call light within reach.
[2023-02-18 15:29] VITALS: BP 137/86; PULSE 74; TEMP 97.7
--- NOTE | 2023-02-18 15:32 | NUR ---
Construction Project Manager met with patient to discuss discharge planning. Patient lives in [place] with his dog. Patient goes to the [facility] for primary care and medications. Patient also uses [facility] also as needed. Patient has a CPAP at home, however does not currently wear it as his mask does not fit well. Patient has an appointment on 03/19/2023 for a mask fitting. Patient reported independence with ADLS. Patient stated his DPOA-HC is his daughter, Grace Villegas. Patient plans to return home at time of discharge. Discharge Plan: Home
--- NOTE | 2023-02-18 15:53 | NUR ---
Initial visit; Patient thanked Brooch Maker Novelty for looking in on him and offering God's blessings.
--- NOTE | 2023-02-18 17:56 | NUR ---
Pt states he is tolerating diet well. Denies c/o N,V,D, or ABD discomfort.
[2023-02-18 20:44] VITALS: BP 126/87; PULSE 142; PULSE 82; TEMP 98.8
[2023-02-19 00:08] VITALS: BP 102/60; PULSE 64; TEMP 98.6
[2023-02-19 04:22] VITALS: BP 112/82; PULSE 69; TEMP 98.5
[2023-02-19 07:15] VITALS: BP 139/84; PULSE 62; TEMP 98
--- NOTE | 2023-02-19 11:31 | NUR ---
Discharge instructions given both verbal and handwritten. Discussed f/u appt, s/s of infection, home medications and when to return to the ER. Verbalizes understanding/denies questions/concerns. INT to left AC DCd at this time cath intact. Instructed to call for staff to escort out via wheelchair when ride arrives. Verbalizes understanding. Call light in reach. Will monitor.
--- NOTE | 2023-02-19 11:41 | NUR ---
Escorted off mustafa via wheelchair by PCT in stable condition.
== END 2023-02-19 11:42 | disposition home or self-care (01) ==
LOC: COL.ER 11:49 → MEDICAL 16:09
PROVIDERS: ADMIT Surgery
DX: K56.609 Unspecified intestinal obstruction, unspecified as to partial versus complete obstruction (principal); Z95.3 Presence of xenogenic heart valve; Z28.310 Unvaccinated for COVID-19
CPT/HCPCS: G0378; J2270; J2405; J7030; Q9967

== ENCOUNTER 2023-12-15 06:19 | Emergency (ER) | payer OTHER, MEDICARE ==
[~2023-12-15] VITALS: Ht 175.3 cm; Wt 112.7 kg
[~2023-12-15 06:19] MED LIST changes: +DESYREL 50MG50 MG PO
[2023-12-15 06:48] LABS: BASO % 0.3 % (0.0-2.0); EOS # 0.1 K/mm3 (0.0-0.7); EOS % 1.7 % (0.0-4.0); GRAN # 4.9 K/mm3 (1.4-6.5); GRAN % 67.5 % (42.2-75.2); HEMATOCRIT 44.5 % (42.0-52.0); HEMOGLOBIN 15.3 g/dl (13.5-18.0); LYMPH # 1.6 K/mm3 (1.2-3.4); LYMPH % 22.7 % (20.0-51.0); MEAN CELL VOLUME 88 fl (80.0-100.0); MEAN CORPUSCULAR HEMOGLOBIN 30 pg (27-31); MEAN CORPUSCULAR HGB CONC 34 g/dl (33.0-37.0); MEAN PLATELET VOLUME 11.3 fl (7.4-10.4); MONO # 0.5 K/mm3 (0.1-0.6); MONO % 7.5 % (1.7-9.3); PLATELET COUNT 148 K/mm3 (130-400); RED BLOOD COUNT 5.08 M/mm3 (4.20-5.60); REDCELL DISTRIBUTION WIDTH-CV 12.5 % (11.5-14.5)
[2023-12-15 06:52] LABS: INR 1.1 (0.8-3.0); PROTHROMBIN TIME 11.6 SECONDS (9.7-12.8)
[2023-12-15 07:07] LABS: PARTIAL THROMBOPLASTIN TIME 35.3 SECONDS (26.0-37.0)
[2023-12-15 07:08] LABS: ALANINE AMINOTRANSFERASE 38 U/L (0-55); ALBUMIN 3.9 gm/dL (3.4-4.8); ALKALINE PHOSPHATASE 46 U/L (40-150); ANION GAP 10 mmol/L (7-16); AST,SGOT 22 U/L (5-34); BILIRUBIN,TOTAL 0.5 mg/dL (0.2-1.2); BLOOD UREA NITROGEN 12 mg/dL (8-26); CALCIUM 8.9 mg/dL (8.4-10.2); CARBON DIOXIDE 22 mmol/L (23-31); CHLORIDE 104 mmol/L (98-107); CREATININE, serum 0.83 mg/dL (0.72-1.25); GLUCOSE 107 mg/dL (70-99); POTASSIUM 4.2 mmol/L (3.5-4.5); SODIUM 136 mmol/L (136-145); TOTAL PROTEIN 6.7 gm/dL (6.2-8.1)
[2023-12-15 07:19] LABS: TROPONIN-I < 0.010 ng/mL (0.00-0.033)
[2023-12-15 09:40] VITALS: BP 118/95; PULSE 75; TEMP 98.1
== END 2023-12-15 09:43 | disposition home or self-care (01) ==
LOC: COL.ER 06:19
PROVIDERS: Internal Medicine
DX: R07.89 Other chest pain (principal); R05.9 Cough, unspecified

== ENCOUNTER 2023-12-26 08:56 | Emergency (ER) | payer OTHER, MEDICARE ==
[~2023-12-26] VITALS: Ht 175.3 cm; Wt 112.7 kg
[2023-12-26 09:03] VITALS: TEMP 97.9
[2023-12-26] MEDS ORDERED: Ketorolac 30 MG/ML VIAL IV ONE (09:30)
[2023-12-26 10:06] LABS: BASO % 0.6 % (0.0-2.0); EOS # 0.2 K/mm3 (0.0-0.7); EOS % 3.5 % (0.0-4.0); GRAN # 2.4 K/mm3 (1.4-6.5); GRAN % 45.6 % (42.2-75.2); HEMATOCRIT 44.5 % (42.0-52.0); HEMOGLOBIN 14.9 g/dl (13.5-18.0); LYMPH # 2.1 K/mm3 (1.2-3.4); LYMPH % 40.3 % (20.0-51.0); MEAN CELL VOLUME 89 fl (80.0-100.0); MEAN CORPUSCULAR HEMOGLOBIN 30 pg (27-31); MEAN CORPUSCULAR HGB CONC 34 g/dl (33.0-37.0); MEAN PLATELET VOLUME 11.6 fl (7.4-10.4); MONO # 0.5 K/mm3 (0.1-0.6); MONO % 9.8 % (1.7-9.3); PLATELET COUNT 158 K/mm3 (130-400); RED BLOOD COUNT 5.02 M/mm3 (4.20-5.60); REDCELL DISTRIBUTION WIDTH-CV 12.5 % (11.5-14.5)
[2023-12-26 10:24] LABS: ALANINE AMINOTRANSFERASE 31 U/L (0-55); ALBUMIN 3.7 gm/dL (3.4-4.8); ALKALINE PHOSPHATASE 44 U/L (40-150); ANION GAP 8 mmol/L (7-16); AST,SGOT 20 U/L (5-34); BILIRUBIN,TOTAL 0.4 mg/dL (0.2-1.2); BLOOD UREA NITROGEN 13 mg/dL (8-26); CALCIUM 9.2 mg/dL (8.4-10.2); CARBON DIOXIDE 26 mmol/L (23-31); CHLORIDE 102 mmol/L (98-107); CREATININE, serum 0.85 mg/dL (0.72-1.25); GLUCOSE 101 mg/dL (70-99); POTASSIUM 4.5 mmol/L (3.5-4.5); SODIUM 136 mmol/L (136-145); TOTAL PROTEIN 6.6 gm/dL (6.2-8.1)
[2023-12-26 10:32] LABS: TROPONIN-I < 0.010 ng/mL (0.00-0.033)
[2023-12-26 11:27] VITALS: BP 143/106; PULSE 62
== END 2023-12-26 11:35 | disposition home or self-care (01) ==
LOC: COL.ER 08:56
PROVIDERS: Emergency Medicine
DX: R07.89 Other chest pain (principal); R05.9 Cough, unspecified; Z95.1 Presence of aortocoronary bypass graft
CPT/HCPCS: J1885